=== PATIENT | male | born 1995 | race Caucasian/White ===

== ENCOUNTER 2024-05-23 11:02 | Emergency (ER) | payer OTHER, SELFPAY ==
--- NOTE | 2024-05-23 11:04 | XR_ITS ---
WS: [id number] Portable AP upright chest, 05/23/2024 Clinical Data: cp Comparison: None. Findings: No nodules, masses or effusions are seen. The heart is normal. The pulmonary vascularity is not increased. No pneumonia or pneumothorax is seen. XR/XR chest 1V portable [id number] Impression: Negative chest.
[2024-05-23 11:10] VITALS: BP 122/85; PULSE 82; RESP 18; TEMP 36.7; O2SAT 93; BMI 31.5
--- NOTE | 2024-05-23 11:16 | ECG_ITS ---
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 Measurements Intervals [place] Rate: 79 P: 14 AK: 130 QRS: -22 QRSD: 103 T: 46 QT: 339 QTc: 390 Interpretive Statements SINUS RHYTHM WITH SINUS ARRHYTHMIA BORDERLINE LEFT AXIS DEVIATION [QRS AXIS < -20] INTERPRETATION BASED ON A DEFAULT AGE OF 40 YEARS No previous ECG available for comparison Electronically Signed On 05-23-2024 17:21:53 FIELD CROP FARMWORKER by Patricio Jean M.D. [id number]
--- NOTE | 2024-05-23 11:24 | ECG_ITS ---
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 Measurements Intervals [place] Rate: 79 P: 14 [place]: 130 QRS: -22 QRSD: 103 T: 46 QT: 339 QTc: 390 Interpretive Statements SINUS RHYTHM WITH SINUS ARRHYTHMIA BORDERLINE LEFT AXIS DEVIATION [QRS AXIS < -20] INTERPRETATION BASED ON A DEFAULT AGE OF 40 YEARS No previous ECG available for comparison Electronically Signed On 05-23-2024 17:22:24 ARMHOLE FELLER HANDSTITCHING MACHINE by Patricio Jean M.D. [id number]
--- NOTE | 2024-05-23 11:26 | ED_ITS ---
HPI - Chest Pain 2 General: Chief Complaint: Chest Pain Stated Complaint: chest pain Time Seen by Provider: 05/23/24 11:19 History of Present Illness: 29-year-old male presents with some flul bereket symptoms for the last couple days days with some cough, pain in his lower sternum epigastric region with deep breath. Some nausea, no vomiting or diarrhea. Patient reports over the last 2 days the pain and pressure got a little bit more increase in his chest and just wanted to be evaluated. He has severe GERD and took a Zantac this morning and just wanted to have it checked out today. Associated symptoms: Reports abdominal pain (Epigastric), dyspnea and nausea; Deny fever(s), palpitations or vomiting Related Data Home Medications Medication Instructions Recorded Confirmed calcium carbonate (Tums) 300 mg PO TID 05/23/24 05/23/24 famotidine 20 mg tablet 20 mg PO DAILY 05/23/24 05/23/24 phenylephrine 5 2 cap PO Q6H PRN Sinus Symptoms 05/23/24 05/23/24 mg-dextromethorphan 10 mg-acetaminophen 325 mg capsule Allergies Allergy/AdvReac Type Severity Reaction Status Date / Time ibuprofen Allergy Unknown Verified 05/23/24 11:17 Review of Systems 2 Const: Reports: fatigue and malaise; Denies: fever(s) or chills Card: Reports: chest pain; Denies: palpitations, dyspnea on exertion or orthopnea Resp: Reports: dyspnea, non-productive cough and pain on inspiration GI: Reports: abdominal pain (Epigastric) and nausea; Denies: vomiting : Denies: flank pain or difficulty urinating Skin/Breast: Denies: rash Neuro: Reports: headache(s) Psych: Denies: anxiety or depression Physical Exam 2 Const: COMMON NORMALS: no acute distress, average body habitus, patient oriented x3, no limitations, healthy appearing and alert Chest: CHEST: Yes tenderness (Epigastric) xiphoid process Resp: COMMON NORMALS: normal respiratory effort, No retractions, No use of accessory muscles and clear to auscultation bilaterally AUSCULTATION: clear to auscultation bilaterally Cardio: COMMON NORMALS: regular rate and regular rhythm RATE: regular rate RHYTHM: regular rhythm GI: COMMON NORMALS: Soft to palpation PALPATION: Yes Soft to palpation and Yes Tenderness to palpation present (GI) (Mild epigastric) Extremity: COMMON NORMALS: normal to inspection, full ROM and capillary refill normal Neuro: COMMON NORMALS: patient oriented x3, moves all extremities and no focal motor deficits SENSORIUM/ORIENTATION: Yes alert Psych: COMMON NORMALS: Normal thought process present, cooperative, normal affect and speech normal SPEECH: Yes normal speech THOUGHT PROCESS: Normal thought process present Skin: COMMON NORMALS: no rashes or lesions noted and turgor normal GENERAL SKIN EXAM: no rashes or lesions noted and turgor normal Course 2 Vital Signs: Vital signs: Vital Signs Temperature 98.0 F 05/23/24 11:10 Pulse Rate 73 05/23/24 15:37 Respiratory Rate 18 05/23/24 15:37 Blood Pressure 127/91 05/23/24 15:37 Pulse Oximetry 96 05/23/24 15:37 Oxygen Delivery Me thod Room Air 05/23/24 13:40 MDM - Chest Pain Medical Decision Making Patient diagnostic studies were ordered reviewed and interpreted by me. Patient has no significant findings on his labs. Patient with a negative troponin with symptoms similar gone for couple days with some negative EKGs. Patient's symptoms are consistent with a viral pleurisy along with maybe some reflux. Patient is feeling better. Discussed with him findings. Recommended he start taking his medications daily for reflux along with some ibuprofen or Tylenol for the pleuritic chest pain. Patient was positive for entero-/rhinovirus. He is stable and discharged home Lab Data 05/23/24 11:44 05/23/24 11:44 Radiology Impressions Chest X-Ray 05/23/24 11:04 Impression: Negative chest. Laboratory Results WBC 7.72 10^3/uL (3.29-11.43) 05/23/24 11:44 RBC 5.21 10^6/uL (3.85-5.65) 05/23/24 11:44 Hgb 16.10 g/dL (11.27-16.99) 05/23/24 11:44 Hct 47.5 % (37-53) 05/23/24 11:44 MCV 91.2 fl (82-101) 05/23/24 11:44 MCH 30.9 pg (27-33) 05/23/24 11:44 MCHC 33.9 g/dL (30-55) 05/23/24 11:44 RDW 12.5 % (12.1-15.1) 05/23/24 11:44 Plt Count 200 10^3/cmm (157-399) 05/23/24 11:44 MPV 9.8 fL (7.4-10.4) 05/23/24 11:44 Neut % (Auto) 59.2 % 05/23/24 11:44 Lymph % (Auto) 31.0 % 05/23/24 11:44 [place] % (Auto) 7.4 % 05/23/24 11:44 Eos % (Auto) 1.6 % 05/23/24 11:44 Baso % (Auto) 0.4 % 05/23/24 11:44 Neut # (Auto) 4.58 10^3/uL (1.8-7.7) 05/23/24 11:44 Lymph # (Auto) 2.4 10^3/uL (0.8-4.8) 05/23/24 11:44 [place] # (Auto) 0.6 10^3/uL (0.2-0.9) 05/23/24 11:44 Eos # (Auto) 0.1 10^3/uL (0.0-0.8) 05/23/24 11:44 Baso # (Auto) 0.0 10^3/uL (0.0-0.1) 05/23/24 11:44 Nucleated RBC % (auto) 0 % 05/23/24 11:44 Nucleated RBCs # 0.0 /100WBC 05/23/24 11:44 Sodium 141 mmol/L (136-145) 05/23/24 11:44 Potassium 4.5 mmol/L (3.5-5.1) 05/23/24 11:44 Chloride 102 mmol/L (98-107) 05/23/24 11:44 Carbon Dioxide 26 mmol/L (22-29) 05/23/24 11:44 Anion Gap 17.5 (5-19) 05/23/24 11:44 BUN 11 mg/dL (6-20) 05/23/24 11:44 Creatinine 0.8 mg/dL (0.7-1.2) 05/23/24 11:44 GFR Calculation 115.1 mL/min (90-130) 05/23/24 11:44 Glucose 103 mg/dL (65-115) 05/23/24 11:44 Calculated Osmolality 292 mOsm/kg (285-295) 05/23/24 11:44 Calcium 9.5 mg/dL (8.5-10.5) 05/23/24 11:44 Total Bilirubin 0.3 mg/dL (0.15-1.2) 05/23/24 11:44 AST 16 U/L (0-40) 05/23/24 11:44 ALT 22 U/L (0-41) 05/23/24 11:44 Alkaline Phosphatase 79 U/L (40-130) 05/23/24 11:44 Troponin T Baseline < 6 ng/L (0-15) 05/23/24 11:44 Total Protein 6.9 g/dL (6.6-8.7) 05/23/24 11:44 Albumin 4.8 g/dL (3.5-5.2) 05/23/24 11:44 Globulin 2.1 g/dL (1.3-4.6) 05/23/24 11:44 Lipase 33 U/L (13-60) 05/23/24 11:44 Adenovirus (PCR) Not detected (NOT DETECT) 05/23/24 11:39 C. pneumoniae DNA (PCR) Not detected (NOT DETECT) 05/23/24 11:39 Coronavirus 229E (PCR) Not detected (NOT DETECT) 05/23/24 11:39 Human Metapneumovir PCR Not detected (NOT DETECT) 05/23/24 11:39 Influenza A (H1) PCR Not detected (NOT DETECT) 05/23/24 11:39 Influ A (H1/09) PCR Not detected (NOT DETECT) 05/23/24 11:39 Influenza A (H3) PCR Not detected (NOT DETECT) 05/23/24 11:39 Influenza Type A (PCR) Not detected (NOT DETECT) 05/23/24 11:39 Influenza Type B (PCR) Not detected (NOT DETECT) 05/23/24 11:39 M. pneumoniae (PCR) Not detected (NOT DETECT) 05/23/24 11:39 Parainfluenza 1 (PCR) Not detected (NOT DETECT) 05/23/24 11:39 Parainfluenza 2 (PCR) Not detected (NOT DETECT) 05/23/24 11:39 Parainfluenza 3 (PCR) Not detected (NOT DETECT) 05/23/24 11:39 Parainfluenza 4 (PCR) Not detected (NOT DETECT) 05/23/24 11:39 RSV Type A (PCR) Not detected (NOT DETECT) 05/23/24 11:39 RSV Type B (PCR) Not detected (NOT DETECT) 05/23/24 11:39 Entero/Rhino (PCR) Detected (NOT DETECT) A 05/23/24 11:39 SARS-CoV-2 (PCR) Not detected (NOT DETECT) 05/23/24 11:39 All radiology interpretation(s) finalized by discharge Discharge Plan Discharge Patient Disposition: Home Clinical Impression: Viral syndrome, Chest pain, pleuritic, GERD (gastroesophageal reflux disease) Condition: Stable Prescriptions: No Action Tums 300 mg (750 mg) Tablet,Chewable 300 mg PO TID famotidine 20 mg Tablet 20 mg PO DAILY DayTime 5-10-325 mg Capsule 2 cap PO Q6H PRN (Reason: Sinus Symptoms) Discharge Orders: Discharge ED (Routine); Ordered 05/23/24 Ordered By: Girish Liao Referrals: Walter Tavares MD [Family Provider] - Discharge Diet: Advance as tolerated Discharge Activity: Resume usual activity Patient Instructions: Pleurisy (ED), GERD (Gastroesophageal Reflux Disease) (DC), Esophageal Spasm (ED), Opioid Safety, Pain Management, Viral Syndrome - Adult Activity Restrictions/Additional Instructions: He is followed with your primary care provider in 7 to 10 days if symptoms or not improving. You may use Tylenol ibuprofen for discomfort. Return to the ER with any concerns Coding Level of Care Code ED Regulator Tester for Carla Gordon
[2024-05-23 11:51] LABS: Basophils % 0.4 %; Eosinophils # 0.1 10^3/uL (0.0-0.8); Eosinophils % 1.6 %; Hematocrit 47.5 % (37-53); Lymphocytes # 2.4 10^3/uL (0.8-4.8); Mean Corpuscular HGB Conc 33.9 g/dL (30-55); Mean Corpuscular Hemoglobin 30.9 pg (27-33); Mean Corpuscular Volume 91.2 fl (82-101); Mean Platelet Volume 9.8 fL (7.4-10.4); Monocytes # 0.6 10^3/uL (0.2-0.9); Monocytes % 7.4 %; Neutrophils # 4.58 10^3/uL (1.8-7.7); Neutrophils % 59.2 %; Nucleated Red Blood Cells % 0 %; Platelet Count 200 10^3/cmm (157-399); Red Blood Count 5.21 10^6/uL (3.85-5.65); Red Cell Distribution Width 12.5 % (12.1-15.1); White Blood Count 7.72 10^3/uL (3.29-11.43)
[2024-05-23 12:14] LABS: Troponin(5th) Baseline < 6 ng/L (0-15)
[2024-05-23 12:16] VITALS: BP 123/92; PULSE 80; RESP 16; O2SAT 99
[2024-05-23 12:21] LABS: Alanine Aminotransferase 22 U/L (0-41); Albumin Level 4.8 g/dL (3.5-5.2); Alkaline Phosphatase 79 U/L (40-130); Anion Gap 17.5 (5-19); Aspartate Amino Transferase 16 U/L (0-40); Blood Urea Nitrogen 11 mg/dL (6-20); Calcium 9.5 mg/dL (8.5-10.5); Carbon Dioxide 26 mmol/L (22-29); Chloride 102 mmol/L (98-107); Creatinine Clr Calc Pharmacy 162.7811; Globulin 2.1 g/dL (1.3-4.6); Glomerular Filtration Rate 115.1 mL/min (90-130); Glucose 103 mg/dL (65-115); Lipase 33 U/L (13-60); Osmolality Calculated 292 mOsm/kg (285-295); Potassium 4.5 mmol/L (3.5-5.1); Sodium 141 mmol/L (136-145); Total Bilirubin 0.3 mg/dL (0.15-1.2); Total Protein 6.9 g/dL (6.6-8.7)
--- NOTE | 2024-05-23 13:24 | ECG_ITS ---
[facility]: [facility]24[facility]23 Pat Name: Rudi Chavez Department: Room: Gender: Male Counseling Aide: : 1995 Requested By: Girish Liao Order Number: [id number] Parag MD: Patricio Jean M.D. Measurements Intervals [place] Rate: 68 P: 36 DE: 172 QRS: -2 QRSD: 103 T: 30 QT: 363 QTc: 386 Interpretive Statements SINUS RHYTHM WITH SINUS ARRHYTHMIA Compared to ECG 05/23/2024 11:05:56 No significant changes Electronically Signed On 05-23-2024 17:37:29 FISHING LINE WINDING MACHINE OPERATOR by Patricio Jean M.D. [email or web address]
[2024-05-23 13:40] VITALS: BP 134/98; PULSE 70; RESP 16; O2SAT 98
[2024-05-23 15:37] VITALS: BP 127/91; PULSE 73; RESP 18; O2SAT 96
[2024-05-23 15:51] LABS: Adenovirus Not Detected (NOT DETECT); Chlamydia Pneumoniae Not Detected (NOT DETECT); Coronavirus 229E,HKU1,NL63,OC4 Not Detected (NOT DETECT); Human Metapneumovirus Not Detected (NOT DETECT); Human Rhinovirus/Enterovirus Detected (NOT DETECT); Influenza A Not Detected (NOT DETECT); Influenza A H1 Not Detected (NOT DETECT); Influenza A H1-2009 Not Detected (NOT DETECT); Influenza A H3 Not Detected (NOT DETECT); Influenza B Not Detected (NOT DETECT); Mycoplasma Pneumoniae Not Detected (NOT DETECT); Parainfluenza Virus Type 1 Not Detected (NOT DETECT); Parainfluenza Virus Type 2 Not Detected (NOT DETECT); Parainfluenza Virus Type 3 Not Detected (NOT DETECT); Parainfluenza Virus Type 4 Not Detected (NOT DETECT); Respiratory Syncytial Virus A Not Detected (NOT DETECT); Respiratory Syncytial Virus B Not Detected (NOT DETECT); SARS-COV-2 Not Detected (NOT DETECT)
== END 2024-05-23 15:37 | disposition home or self-care (01) ==
PROVIDERS: Emergency Provider Student in an Organized Health Care Education/Training Program; Family Provider Internal Medicine
DX: B34.9 Viral infection, unspecified (principal); R07.81 Pleurodynia; K21.9 Gastro-esophageal reflux disease without esophagitis; Z11.52 Encounter for screening for COVID-19
CPT/HCPCS: 36415; 71045; 80053; 83690; 84484; 85025; 87486; 87581; 87633; 93005; 99285

== ENCOUNTER 2024-07-02 15:17 | Emergency (ER) | payer OTHER, SELFPAY ==
[2024-07-02 15:42] VITALS: BP 138/87; PULSE 65; TEMP 36.7; O2SAT 97; BMI 30.5
--- NOTE | 2024-07-02 17:11 | XRR_ITS ---
PROCEDURE INFORMATION: Exam: XR Right Knee Exam date and time: 07/02/2024 5:13 PM Age: 29 years old Clinical indication: Injury or trauma; Other: Twisted RT knee; Additional info: Injury/pain TECHNIQUE: Imaging protocol: Radiologic exam of the right knee. Views: 3 views. COMPARISON: No relevant prior studies available. FINDINGS: Bones/joints: .No acute fracture. No dislocation. Normal bone mineralization. No joint effusion. Joint spaces are maintained. Soft tissues: No soft tissue swelling or soft tissue emphysema. No radiopaque foreign body. XR/XR knee RT 3V* [id number] IMPRESSION: Negative radiographs of the right knee. Followup imaging recommended in 7-14 days if clinical concern for fracture persists.
--- NOTE | 2024-07-02 18:11 | ED_ITS ---
HPI - Extremity Problem General: Chief complaint: Extremity Injury, Lower Stated complaint: R knee injury Time Seen by Provider: 07/02/24 17:11 Source: patient Mode of arrival: ambulatory Limitations: no limitations History of Present Illness: Patient is a 29-year-old male who presents the emergency department complaining of right knee pain for 10 days. States that he injured it after playing basket ball, there was a twisting aspect of the injury and he notes that it has not been getting better despite Tylenol and other conservative therapy. No previous injuries to the right knee or surgeries. It is reported to be primarily to the lateral aspect, at the proximal fibula. Denies any radiation of the pain. States that it is worsened by walking, however even at rest he can feel that it throbs. He states that he cannot take ibuprofen because he is allergic. While he states it was initially swollen after the incident, this has since gotten better. He also is not reporting any warmth to the joint or any fevers or other systemic signs of illness. MD Complaint: joint pain Onset (ago): day(s) (10) Pain Consistency: constant Location: right and knee Quality: other (throbbing) Radiation: none Relieving factors: nothing Exacerbating factors: range of motion and rest Associated symptoms: Reports no associated symptoms; Deny chest pain, fever(s) or rash Context: other (twisting injury) Related Data Home Medications ?Medication ?Instructions ?Recorded ?Confirmed calcium carbonate (Tums) 300 mg PO TID 05/23/2405/23 famotidine 20 mg tablet 20 mg PO DAILY 05/23/2401/07 phenylephrine 5 2 cap PO Q6H PRN Sinus Sympt oms 05/23/24 05/23/24 mg-dextromethorphan 10 mg-acetaminophen 325 mg capsule Previous Rx's ?Medication ?Instructions ?Recorded prednisone 20 mg tablet 60 mg (3 x 20 mg) PO ONCE 5 days 07/02/24 #15 tabs Allergies Allergy/AdvReac Type Severity Reaction Status Date / Time ibuprofen Allergy Unknown Verified 07/02/24 15:47 Review of Systems General: Reports: 10 or more systems reviewed and unremarkable except in HPI and below Const: Denies: fever(s) or chills Card: Denies: chest pain Resp: Denies: dyspnea or productive cough GI: Denies: abdominal pain, nausea, vomiting or diarrhea : Denies: flank pain Musc: Reports: joint pain (Right knee) and joint swelling (Right knee); Denies: neck pain, back pain, extremity pain, extremity swelling, joint redness, joint warmth, limited range of motion or muscle weakness Skin/Breast: Denies: rash Neuro: Denies: headache(s), numbness in extremities or weakness in extremities Physical Exam Const: COMMON NORMALS: no acute distress, patient oriented x3, no limitations, healthy appearing, alert and well nourished HENMT: COMMON NORMALS: normocephalic and atraumatic HEAD & SCALP: normocephalic and atraumatic Neck/C-Spine: COMMON NORMALS: full ROM, supple and no meningeal signs Extremity: COMMON NORMALS: normal to inspection, full ROM, capillary refill normal, no joint enlargement and no clubbing, cyanosis or edema NARRATIVE EXTREMITY EXAM: Mild reproducible tenderness to palpation to proximal head of fibula, no overlying abnormalities. There is no diffuse swelling to the right knee joint, no appreciable joint effusion. Joint is not warm to the touch, there is no erythema. Full range of motion, no laxity with varus/valgus stress testing. Negative Himanshu and posterior drawer. Negative Karis's and negative Ambrose compression test. Distal neurovascular exam unremarkable. Neuro: COMMON NORMALS: patient oriented x3, moves all extremities, no focal motor deficits and no sensory deficits noted SENSORIUM/ORIENTATION: Yes alert MENINGEAL SIGNS: Yes no meningeal signs Skin: COMMON NORMALS: no rashes or lesions noted GENERAL SKIN EXAM: no rashes or lesions noted Course Vital Signs: Vital signs: Vital Signs Temperature 98.1 F 07/02/24 15:42 Pulse Rate 65 07/02/24 15:42 Blood Pressure 138/87 07/02/24 15:42 Pulse Oximetry 97 07/02/24 15:42 Oxygen Delivery Me thod Room Air 07/02/24 15:42 MDM - Extremity (Nontraumatic) Medical Decision Making Patient has had right knee pain for the past 10 days after twisting injury playing basketball. Was initially reported to be swelling but this has since gotten better. On physical exam there were no special knee tests that were positive or that raise concern, certainly do not appear to be a septic joint. X-ray also did not demonstrate any acute major abnormalities. Despite negative special testing, where he is tender this could be pain at distal IT band insertion, he had stated that he cannot take ibuprofen secondary to being allergic. Reported symptoms lasting 10 days we will go ahead and try prednisone ultimately will have him follow-up with orthopedist as if he continues to have significant pain he may warrant an MRI. Overall no emergent concerns here today, return precautions given. Lab Data Radiology Impressions Knee X-Ray 07/02/24 17:11 IMPRESSION: Negative radiographs of the right knee. Followup imaging recommended in 7-14 days if clinical concern for fracture persists. All radiology interpretation(s) finalized by discharge Discharge Plan Discharge Patient Disposition: Home Clinical Impression: Knee pain, right Condition: Stable Prescriptions: New prednisone 20 mg tablet 60 mg PO ONCE 5 Days Qty: 15 0RF No Action Tums 300 mg (750 mg) Tablet,Chewable 300 mg PO TID famotidine 20 mg Tablet 20 mg PO DAILY DayTime 5-10-325 mg Capsule 2 cap PO Q6H PRN (Reason: Sinus Symptoms) Discharge Orders: Discharge ED (Routine); Ordered 07/02/24 Ordered By: Rod Baer Referrals: Walter Tavares MD [Family Provider] - Patient Instructions: Knee Pain (ED) Activity Restrictions/Additional Instructions: Follow-up with orthopedics. Prednisone as prescribed. May continue to take Tylenol for pain. Elevate the extremity and compression device. Range of motion as tolerated. Return with any significant swelling of the joint, redness or heat to the joint, fevers, or any concerns that you have. Print Language: Faroese Coding Level of Care Code ED Middle School English Teacher for Carla Gordon
[2024-07-02 18:18] VITALS: BP 118/86; PULSE 80; RESP 18; O2SAT 97
--- NOTE | 2024-07-05 07:31 | DCPLANNER ---
messaged ortho for er f/u
== END 2024-07-02 18:19 | disposition home or self-care (01) ==
PROVIDERS: Emergency Provider Physician Assistant; Family Provider Internal Medicine
DX: M25.561 Pain in right knee (principal)
CPT/HCPCS: 73562; 99283

== ENCOUNTER → 2024-07-11 10:13 | Outpatient (BNVA) | payer OTHER, SELFPAY | PROVIDERS: Family Provider Internal Medicine; Visit Provider Specialist | DX: S89.91XA Unspecified injury of right lower leg, initial encounter (principal); M25.561 Pain in right knee; X58.XXXA Exposure to other specified factors, initial encounter | CPT/HCPCS: 73560; 73565 ==

== ENCOUNTER 2024-07-18 15:13 | Outpatient (CLI) | payer OTHER, SELFPAY ==
--- NOTE | 2024-07-18 15:15 | MR_ITS ---
WS: [id number] MRI RIGHT KNEE NONCONTRAST TECHNIQUE: Axial PD, coronal PD fat sat, coronal PD, sagittal PD, and sagittal PD fat-sat images obtained. CLINICAL INFORMATION: right knee pain COMPARISON: None. FINDINGS: Distal quadriceps and patella tendons are intact. Normal ACL and PCL. Medial and lateral meniscus appear intact. No acute appearing meniscal tears. Edema within the posterior lateral tibial plateau with small acute nondisplaced osteochondral fracture. No significant depression. Tiny amount of edema extending to the tibial spines and medial tibial plateau. No other visualized fractures. Normal patella. Normal patellar cartilage. Normal medial and lateral patellar retinaculum. Normal medial and lateral collateral ligaments. Normal femoral condyles. Normal popliteal fossa. Head of the fibula is normal. MR/MR knee RT wo con* [id number] IMPRESSION: 1. ACL and PCL appear intact. 2. No acute appearing meniscal tears. 3. Acute osteochondral fracture involving the lateral posterior tibial plateau with diffuse associated edema. No displaced fragments. 4. Medial and lateral collateral ligaments appear intact. 5. No other acute findings. Outbridge grading: grade I: focal areas of hyperintensity with normal contour
== END 2024-07-18 15:14 | disposition home or self-care (01) ==
LOC: RAD 15:14
PROVIDERS: Family Provider Internal Medicine; Visit Provider Specialist
DX: S82.144A Nondisplaced bicondylar fracture of right tibia, initial encounter for closed fracture (principal); X58.XXXA Exposure to other specified factors, initial encounter
CPT/HCPCS: 73721; 99204

== ENCOUNTER → 2024-07-30 14:57 | Outpatient (BNVA) | payer OTHER, SELFPAY | PROVIDERS: Family Provider Internal Medicine; Visit Provider Specialist | DX: S82.142A Displaced bicondylar fracture of left tibia, initial encounter for closed fracture (principal); X58.XXXA Exposure to other specified factors, initial encounter | CPT/HCPCS: 99214 ==

== ENCOUNTER 2025-03-17 21:43 | Emergency (ER) | payer OTHER, SELFPAY ==
--- OUTSIDE RECORDS SUMMARY | 2024-07-20 04:56 | XMS_ITS | Encounter Summary ---
Author Name [facility] [place] [facility] [place] Address [address] [place] [address] Care Team Providers Care Upholsterer Assembly Line Name Role Phone NURYS CASTRO Primary Care Provider Anand e Insurance Providers: All historical and current Section Date Range: From patient's date of to the date document was created. This section includes the names of all active insurance providers for the patient. Insurance Provider Type of Coverage Plan Name Start of Policy Coverage End of Policy Coverage Group Number Member ID Insurance Provider's Telephone Number Policy Senior's Name Patient's Relationship to Policy Senior Selected Encounter This section includes the information on record at [place] for the Encounter. Date/Time Encounter Type Encounter Description Reason Provider Source Jul 20, 2024 10:56 AM Outpatient Encounter ADMIN PAT ACTIVTIES (MASNONCT) MARIE COX Inge Encounter Template Text not used by [place] Plan of Treatment: Future Appointments (+ 6 months) and Future Tests (+/- 45 days) The Plan of Treatment section includes future care activities for the patient from all [place] treatmentfacilities. This section includes future appointments and future orders which are active, pending or scheduled. Future Appointments This section includes appointments that were scheduled to occur 6 months from the date of the Encounter, up to a maximum of 20 appointments. The data comes from all [place] treatment facilities. Appointment Date/Time Appointment Type Appointme nt Facility Name Aug 07, 2024 01:00 PM AMBULATORY - MEDICINE [facility] Active, Pending, and Scheduled Orders This section includes a listing of several types of active, pending, and scheduled orders, including clinic medications orders, diagnostic test orders, procedure orders and consult orders; where the start date of the order is 45 days before the date of the Encounter or 45 days after the date of theEncounter. The data comes from all [place] treatment facilities. Test Date/Time Test Type Test Details Facility Name Jul 16, 2024 12:00 AM Laboratory - Chemistry Order CBC BLOOD SP [facility] Jul 16, 2024 12:00 AM Laboratory - Chemistry Order COMPREHENSIVE METABOLIC PANEL GREEN LI/HEP BLD/[facility] Jul 16, 2024 12:00 AM Laboratory - Chemistry Order HGA1C BLOOD SP [facility] Jul 16, 2024 12:00 AM Laboratory - Chemistry Order CHOLESTEROL PANEL (PB) GREEN LI/HEP BLD/[facility] Jul 16, 2024 12:00 AM Laboratory - Chemistry Order TSH (MA-PB) GOLD/RED SST SERUM SP [facility] Aug 05, 2024 12:00 AM Laboratory - Chemistry Order BASIC METABOLIC PROFILE LT GREEN PLASMA SP [facility] Aug 05, 2024 12:00 AM Laboratory - Chemistry Order LIPID PANEL LT GREEN PLASMA SP ONCE [facility] Aug 05, 2024 12:00 AM Laboratory - Chemistry Order HEMOGLOBIN & HEMATOCRIT PANEL LAVENDER BLOOD [facility] Encounter Notes: All associated encounter notes This section contains the clinical notes associated to the Encounter. Date/Time Encounter Note(s) Provider Source Jul 20, 2024 10:56 AM PRIMARY CARE NOTE: LOCAL TITLE: C TRAVELING PCMM NOTE PB STANDARD TITLE: PRIMARY CARE NOTE DATE OF NOTE: JUL 20, 2024@10:56 ENTRY DATE: JUL 20, 2024@10:56:54 AUTHOR: MARIE COX EXP COSIGNER: URGENCY: STATUS: COMPLETED Pt. has a new pt. appt. to establish care with [facility] on 08-07-24. PCMM complete. /jolene/ MARIE COX [facility] RNCC Signed: 07/20/2024 10:57 MARIE COX [facility]
--- OUTSIDE RECORDS SUMMARY | 2025-03-17 21:50 | XMS_ITS | Continuity of Care Document ---
Author Name [facility] Organization [facility] Care Team Providers Care Wire Coiler Name Role Phone [facility] Unavailable Unavailable Problems Combined list of problems from Department of Defense and [facility] facilities. It does not include entries that were removed or entered in error. Problem Status Onset Date Problem Type Date of Resolution Comments Source Gastro-esophageal reflux disease without esophagitis Active 07/07/2015 Condition [facility] Low back pain Active Condition [facility] Pain in left shoulder Active Condition [facility] Diagnosis: ICD-10-CM Z74.1 Need for assistance with personal care Active Diagnosis [facility] Diagnosis: ICD-10-CM E78.5 Hyperlipidemia, unspecified Active Diagnosis [facility] Medications Combined list of outpatient medications from Department of Defense and [facility] facilities.Medications provided include 1) outpatient medications from the last 15 months, and 2) patient-reported medications. Medication Details Route Status Indication(s) Patie nt Instructions Prescription Expires Prescription Number Last Dispense Date Ordering Provider Order Date Order Qty Source omeprazole Oral, Daily, 0 total refill(s ), Maintena nce Oral (given by mouth) Ordered 2021 [id number] h [facility] Allergies, Adverse Reactions, Alerts Combined list of allergies from Department of Defense and [facility] facilities. It does not include entries that were removed or entered in error. Substance Category Reaction Severity Reaction type Status Date Reported Comments Source ibuprofen Propensity to adverse reactions to substance Nausea and Vomiting Active 6 Unknown Organization [facility] Drug allergy (disorder) Nausea and Vomiting active 4 [facility] Propensity to adverse reactions to drug (finding) Nausea and vomiting active 4 [facility] Immunizations Combined list of available immunizations from the Department of [facility] and [facility] facilities. Immunization Series Date Given Administered By Site Reaction Lot Number CVX Code Drug Commodities Requirements Analyst Status Comments Source COVID-19 (PFIZER), MRNA, LNP-S, PF, 30 MCG/0.3 ML DOSE 2020 208 complet ed HISTORICA L INFORMATI ON - FROM PATIENT'S WRITTEN RECORD, SANDYV [facility] SARS-COV-2 (COVID-19) vaccine, mRNA, spike protein, LNP, preservative free, 30 mcg/0.3mL dose 2 2020 [id number] Pfizer, Inc (PFR) complet ed SARS-COV- 2 (COVID-19 ) vaccine, mRNA, spike protein, LNP, preservat napoleon free, 30 mcg/0.3mL dose DoD influenza, injectable, quadrivalent, contains preservative 7 2020 [id number] [facility] ([facility]) complet ed influenza , injectabl e, quadrival ent, contains preservat napoleon DoD COVID-19 (PFIZER), MRNA, LNP-S, PF, 30 MCG/0.3 ML DOSE 2020 208 complet ed HISTORICA L INFORMATI ON - FROM PATIENT'S WRITTEN RECORD, JLV [facility] SARS-COV-2 (COVID-19) vaccine, mRNA, spike protein, LNP, preservative free, 30 mcg/0.3mL dose 1 2020 [id number] 208 Pfizer, Inc (PFR) complet ed SARS-COV- 2 (COVID-19 ) vaccine, mRNA, spike protein, LNP, preservat napoleon free, 30 mcg/0.3mL dose DoD SARS-COV-2 (COVID-19) vaccine, mRNA, spike protein, LNP, preservative free, 100 mcg or 50 mcg dose 0 2020 207 () Not Given SARS-COV- 2 (COVID-19 ) vaccine, mRNA, spike protein, LNP, preservat napoleon free, 100 mcg or 50 mcg dose DoD Influenza, injectable, quadrivalent, preservative free 0 2019 [id number] 150 Seqirus (SEQ) complet ed Influenza , injectabl e, quadrival ent, preservat napoleon free DoD anthrax vaccine 3 2019 [id number] 24 [employer] [place] (MIP) complet ed anthrax vaccine DoD American Encephalitis IM 2019 [id number] 134 Valneva complet ed American Encephali tis IM 09/19/19 Given Ambulat ory Pharmac y American Encephalitis vaccine for intramuscular administratio n 2 2019 [id number] 134 Valneva (JACQUELYN) complet ed American Encephali tis vaccine for intramusc ular administr ation DoD vaccinia (smallpox) vaccine 2019 [id number] C 75 sanofi pasteur complet ed vaccinia (smallpox ) vaccine 05/30/19 Given Ambulat ory Pharmac y measles/mumps /rubella virus vaccine 2019 [id number] Merck & Company Inc complet ed measles/m umps/rube lla virus vaccine 05/30/19 Given Ambulat ory Pharmac y measles, mumps and rubella virus vaccine 2 2019 [id number] Merck (MSD) complet ed measles, mumps and rubella virus vaccine DoD vaccinia (smallpox) vaccine 0 2019 [id number] 019 C 75 Sanofi Pasteur (PMC) complet ed vaccinia (smallpox ) vaccine DoD American Encephalitis IM 2019 [id number] 5E 134 Valneva complet ed American Encephali tis IM 05/29/19 Given Ambulat ory Pharmac y anthrax vaccine 2019 [id number] Emergent Biosolutions complet ed anthrax vaccine 05/29/19 Given Ambulat ory Pharmac y anthrax vaccine 2 2019 [id number] 24 [employer] Ruchi (MIP) complet ed anthrax vaccine DoD American Encephalitis vaccine for intramuscular administratio n 1 2019 [id number] 5E 134 Valneva (JACQUELYN) complet ed American Encephali tis vaccine for intramusc ular administr ation DoD influenza, injectable, quadrivalent- pf 2018 [id number] 150 Seqirus complet ed influenza , injectabl e, quadrival ent-pf 04/09/19 Given Ambulat ory Pharmac y anthrax vaccine 2018 [id number] 24 [employer] complet ed anthrax vaccine 04/09/19 Given Ambulat ory Pharmac y typhoid Vi capsular polysaccharid e vac 2018 [id number] 101 sanofi pasteur complet ed typhoid Vi capsular polysacch aride vac 04/09/19 Given Ambulat ory Pharmac y anthrax vaccine 1 2018 [id number] 24 [employer] Ruchi (MIP) complet ed anthrax vaccine DoD typhoid Vi capsular polysaccharid e vaccine 1 2018 [id number] 101 Sanofi Pasteur ([facility]) complet ed typhoid Vi capsular polysacch aride vaccine DoD Influenza, injectable, quadrivalent, preservative free 5 2018 [id number] 150 Seqirus (SEQ) complet ed Influenza , injectabl e, quadrival ent, preservat napoleon free DoD influenza, injectable, quadrivalent- pf 2017 [id number] 150 Seqirus complet ed influenza , injectabl e, quadrival ent-pf 02/15/18 Given Ambulat ory Pharmac y Influenza, injectable, quadrivalent, preservative free 0 2017 [id number] 150 Seqirus (SEQ) comple t ed Influenza , injectabl e, quadrival ent, preservat napoleon free DoD Influenza, injectable, Madin Ward Canine Kidney, quadrivalent with preservative 0 2016 [id number] 186 Seqirus (SEQ) comple t ed Influenza , injectabl e, Madin Ward Canine Kidney, quadrival ent with preservat napoleon DoD hepatitis A-hepatitis B vaccine 2016 [id number] 104 GlaxoSmithKli ne complet ed hepatitis A-hepatit is B vaccine 09/23/16 Given Ambulat ory Pharmac y hepatitis A and hepatitis B vaccine 3 2016 [id number] 104 SmithKline ([facility]) complet ed hepatitis A and hepatitis B vaccine DoD hepatitis A-hepatitis B vaccine 2015 [id number] 104 GlaxoSmithKli ne complet ed hepatitis A-hepatit is B vaccine 02/24/16 Given Ambulat ory Pharmac y hepatitis A and hepatitis B vaccine 2 2015 [id number] 104 SmithKline ([facility]) complet ed hepatitis A and hepatitis B vaccine DoD influenza, seasonal, injectable-pf 2015 [id number] 140 Seqirus complet ed influenza , seasonal, injectabl e-pf 02/16/16 Given Ambulat ory Pharmac y Influenza, seasonal, injectable, preservative free 2 2015 [id number] 140 Seqirus (SEQ) comple t ed Influenza , seasonal, injectabl e, preservat napoleon free DoD hepatitis A-hepatitis B vaccine 2015 [id number] 104 GlaxoSmithKli ne complet ed hepatitis A-hepatit is B vaccine 08/18/15 Given Ambulat ory Pharmac y measles/mumps /rubella virus vaccine 2015 [id number] 03 Merck & Company Inc complet ed measles/m umps/rube lla virus vaccine 08/18/15 Given Ambulat ory Pharmac y measles, mumps and rubella virus vaccine 2 2015 [id number] 03 Merck (MSD) complet ed measles, mumps and rubella virus vaccine DoD hepatitis A and hepatitis B vaccine 1 2015 [id number] 104 TimeBridge (SKB) complet ed hepatitis A and hepatitis B vaccine DoD tuberculin purified protein derivative 2015 [id number] 96 sanofi pasteur complet ed tuberculi n purified protein derivativ e 07/03/15 Given Ambulat ory Pharmac y influenza, injectable, quadrivalent 2015 [id number] 158 [facility] influenza , injectabl e, quadrival ent 07/03/15 Given Ambulat ory Pharmac y adenovirus vaccine, live 2015 [id number] 143 Teva Pharmaceutica ls complet ed adenoviru s vaccine, live 07/03/15 Given Ambulat ory Pharmac y tetanus, diphtheria, acellular pertu is 2015 [id number] 115 [facility] complet ed tetanus, diphtheri a, acellular pertussis 07/03/15 Given Ambulat ory Pharmac y meningococcal A,C,Y,W-135 (MCV4P) 2015 [id number] 114 sanofi pasteur complet ed meningoco ccal A,C,Y,W-1 35 (MCV4P) 07/03/15 Given Ambulat ory Pharmac y poliovirus vaccine, inactivated 2015 [id number] 10 sanofi pasteur complet ed polioviru s vaccine, inactivat ed 07/03/15 Given Ambulat ory Pharmac y TDAP 2015 115 complet ed HISTORICA L INFORMATI ON - FROM PATIENT'S WRITTEN RECORD, [facility] poliovirus vaccine, inactivated 1 2015 L1130 10 Sanofi Pasteur (PMC) complet ed polioviru s vaccine, inactivat ed DoD meningococcal polysaccharid e (groups A, C, Y and W-135) diphtheria toxoid conjugate vaccine (MCV4P) 1 2015 [id number] 114 Sanofi Pasteur (PMC) complet ed meningoco ccal polysacch aride (groups A, C, Y and W-135) diphtheri a toxoid conjugate vaccine (MCV4P) DoD tetanus toxoid, reduced diphtheria toxoid, and acellular pertu is vaccine, adsorbed 1 2015 [id number] 115 [facility] ([facility] complet ed tetanus toxoid, reduced diphtheri a toxoid, and acellular pertussis vaccine, adsorbed DoD Adenovirus, type 4 and type 7, live, oral 1 2015 [id number] 143 Mophie (BRR) complet ed Adenoviru s, type 4 and type 7, live, oral DoD influenza, injectable, quadrivalent, contains preservative 1 2015 [id number] 158 SmithKline (SKB) complet ed influenza , injectabl e, quadrival ent, contains preservat napoleon DoD measles virus vaccine 0 2015 05 () Not Given measles virus vaccine DoD varicella virus vaccine 0 2015 21 () Not Given varicella virus vaccine DoD Results Combined list of recent chemistry, hematology and other laboratory results from Department of Defense and Veterans Affairs, ranging from 15 months to all on record, depending upon the facility. Order Name Results Value Reference Range Date Interpretation Specimen Comments Source VITAMIN B12 COBALAMIN (VITAMIN B12) [MASS/VOLUM E] IN SERUM OR PLASMA 604 pg/mL 211 - 911 09/25 Specimen Type: SERUM No comment entered. Ordering Provider: NURYS CASTRO Report Released Date/Time: Aug 17, 2023 12:25 PM Reporting Lab: [place] [id number] [facility] [address] Performing Lab: [place] [id number] [facility] [address] [facility] CBC LEUKOCYTES [#/VOLUME] IN BLOOD BY AUTOMATED COUNT 8.5 10*3/uL 4.8 - 10.8 09/25 Specimen Type: BLOOD Comment: Values obtained from A1C measurement s can vary. For typical A1C assays, a reported value of 7.0 could actually be between 6.72 and 7.28 if measured by a reference method. A reported value of 9.0 could actually be between 8.73 and 9.27. Ref: [email or web address] Ordering Provider: NURYS CASTRO Report Released Date/Time: Aug 17, 2023 12:25 PM Reporting Lab: [address] [address] Performing Lab: [facility] [address] [facility] [address] [facility] CBC ERYTHROCYTE S [#/VOLUME] IN BLOOD BY AUTOMATED COUNT 5.00 10*6/uL 4.7 - 6.1 09/25 Specimen Type: BLOOD Comment: Values obtained from A1C measurement s can vary. For typical A1C assays, a reported value of 7.0 could actually be between 6.72 and 7.28 if measured by a reference method. A reported value of 9.0 could actually be between 8.73 and 9.27. Ref: [email or web address] Ordering Provider: NURYS CASTRO Report Released Date/Time: Aug 17, 2023 12:25 PM Reporting Lab: [address] [address] Performing Lab: [address] [address] [facility] CBC HEMOGLOBIN [MASS/VOLUM E] IN BLOOD 15.1 g/dL 14 - 18 09/25 Specimen Type: BLOOD Comment: Values obtained from A1C measurement s can vary. For typical A1C assays, a reported value of 7.0 could actually be between 6.72 and 7.28 if measured by a reference method. A reported value of 9.0 could actually be between 8.73 and 9.27. Ref: [email or web address] Ordering Provider: NURYS CASTRO Report Released Date/Time: Aug 17, 2023 12:25 PM Reporting Lab: [address] [address] Performing Lab: [facility] [address] [facility] [address] [facility] CBC HEMATOCRIT [VOLUME FRACTION] OF BLOOD BY AUTOMATED COUNT 44.5 42 - 52 09/25 Specimen Type: BLOOD Comment: Values obtained from A1C measurement s can vary. For typical A1C assays, a reported value of 7.0 could actually be between 6.72 and 7.28 if measured by a reference method. A reported value of 9.0 could actually be between 8.73 and 9.27. Ref: [email or web address] Ordering Provider: NURYS CASTRO Report Released Date/Time: Aug 17, 2023 12:25 PM Reporting Lab: [facility] [address] [place] [address] Performing Lab: [facility] [address] [facility] [address] [facility] CBC MCV [ENTITIC VOLUME] BY AUTOMATED COUNT 88.9 fL 80 - 94 09/25 Specimen Type: BLOOD Comment: Values obtained from A1C measurement s can vary. For typical A1C assays, a reported value of 7.0 could actually be between 6.72 and 7.28 if measured by a reference method. A reported value of 9.0 could actually be between 8.73 and 9.27. Ref: [email or web address] Ordering Provider: NURYS CASTRO Report Released Date/Time: Aug 17, 2023 12:25 PM Reporting Lab: [facility] [address] [facility] [address] Performing Lab: [address] [place] [address] [facility] CBC MCH [ENTITIC MASS] BY AUTOMATED COUNT 30.2 pg 27 - 31 09/25 Specimen Type: BLOOD Comment: Values obtained from A1C measurement s can vary. For typical A1C assays, a reported value of 7.0 could actually be between 6.72 and 7.28 if measured by a reference method. A reported value of 9.0 could actually be between 8.73 and 9.27. Ref: [email or web address] Ordering Provider: NURYS CASTRO Report Released Date/Time: Aug 17, 2023 12:25 PM Reporting Lab: [facility] [address] [facility] [address] Performing Lab: [facility] [address] [facility] [place] [address] [facility] CBC MCHC [MASS/VOLUM E] BY AUTOMATED COUNT 34.0 g/dL 32 - 36 09/25 Specimen Type: BLOOD Comment: Values obtained from A1C measurement s can vary. For typical A1C assays, a reported value of 7.0 could actually be between 6.72 and 7.28 if measured by a reference method. A reported value of 9.0 could actually be between 8.73 and 9.27. Ref: [email or web address] Ordering Provider: NURYS CASTRO Report Released Date/Time: Aug 17, 2023 12:25 PM Reporting Lab: [facility] [address] [place] [address] Performing Lab: [facility] [address] [place] [address] [facility] CBC PLATELETS [#/VOLUME] IN BLOOD BY AUTOMATED COUNT 211 10*3/uL 130 - 400 09/25 Specimen Type: BLOOD Comment: Values obtained from A1C measurement s can vary. For typical A1C assays, a reported value of 7.0 could actually be between 6.72 and 7.28 if measured by a reference method. A reported value of 9.0 could actually be between 8.73 and 9.27. Ref: [email or web address] Ordering Provider: NURYS CASTRO Report Released Date/Time: Aug 17, 2023 12:25 PM Reporting Lab: [facility] [address] [place] [address] Performing Lab: [facility] [address] [place] [address] [facility] CBC PLATELET MEAN VOLUME [ENTITIC VOLUME] IN BLOOD BY AUTOMATED COUNT 8.5 fL 7.4 - 10.4 09/25 Specimen Type: BLOOD Comment: Values obtained from A1C measurement s can vary. For typical A1C assays, a reported value of 7.0 could actually be between 6.72 and 7.28 if measured by a reference method. A reported value of 9.0 could actually be between 8.73 and 9.27. Ref: [email or web address] Ordering Provider: NURYS CASTRO Report Released Date/Time: Aug 17, 2023 12:25 PM Reporting Lab: [facility] [address] [place] [address] Performing Lab: [facility] [address] [place] [address] [facility] CBC MONOCYTES/1 00 LEUKOCYTES IN BLOOD BY AUTOMATED COUNT 8.2 4 - 12 09/25 Specimen Type: BLOOD Comment: Values obtained from A1C measurement s can vary. For typical A1C assays, a reported value of 7.0 could actually be between 6.72 and 7.28 if measured by a reference method. A reported value of 9.0 could actually be between 8.73 and 9.27. Ref: [email or web address] Ordering Provider: NURYS CASTRO Report Released Date/Time: Aug 17, 2023 12:25 PM Reporting Lab: [facility] [address] [facility] [address] Performing Lab: [facility] [address] [facility] [address] [facility] CBC EOSINOPHILS /100 LEUKOCYTES IN BLOOD BY AUTOMATED COUNT 1.7 0 - 11.0 09/25 Specimen Type: BLOOD Comment: Values obtained from A1C measurement s can vary. For typical A1C assays, a reported value of 7.0 could actually be between 6.72 and 7.28 if measured by a reference method. A reported value of 9.0 could actually be between 8.73 and 9.27. Ref: [email or web address] Ordering Provider: NURYS CASTRO Report Released Date/Time: Aug 17, 2023 12:25 PM Reporting Lab: [facility] [address] [facility] [address] Performing Lab: [facility] [address] [facility] [address] [facility] CBC BASOPHILS/1 00 LEUKOCYTES IN BLOOD BY AUTOMATED COUNT 0.6 0.0 - 2.0 09/25 Specimen Type: BLOOD Comment: Values obtained from A1C measurement s can vary. For typical A1C assays, a reported value of 7.0 could actually be between 6.72 and 7.28 if measured by a reference method. A reported value of 9.0 could actually be between 8.73 and 9.27. Ref: [email or web address] Ordering Provider: NURYS CASTRO Report Released Date/Time: Aug 17, 2023 12:25 PM Reporting Lab: [facility] [address] [facility] [address] Performing Lab: [facility] [address] [facility] [address] [facility] CBC ERYTHROCYTE DISTRIBUTIO N WIDTH [RATIO] BY AUTOMATED COUNT 13.3 11.5 - 14.5 09/25 Specimen Type: BLOOD Comment: Values obtained from A1C measurement s can vary. For typical A1C assays, a reported value of 7.0 could actually be between 6.72 and 7.28 if measured by a reference method. A reported value of 9.0 could actually be between 8.73 and 9.27. Ref: [email or web address] Ordering Provider: NURYS CASTRO Report Released Date/Time: Aug 17, 2023 12:25 PM Reporting Lab: [address] [address] Performing Lab: [address] [address] [facility] CBC LYMPHOCYTES /100 LEUKOCYTES IN BLOOD BY AUTOMATED COUNT 33.8 20.5 - 51.1 09/25 Specimen Type: BLOOD Comment: Values obtained from A1C measurement s can vary. For typical A1C assays, a reported value of 7.0 could actually be between 6.72 and 7.28 if measured by a reference method. A reported value of 9.0 could actually be between 8.73 and 9.27. Ref: [email or web address] Ordering Provider: NURYS CASTRO Report Released Date/Time: Aug 17, 2023 12:25 PM Reporting Lab: [facility] [address] [facility] [address] Performing Lab: [facility] [address] [place] [address] [facility] CBC NEUTROPHILS /100 LEUKOCYTES IN BLOOD BY AUTOMATED COUNT 55.7 42.2 - 75.2 09/25 Specimen Type: BLOOD Comment: Values obtained from A1C measurement s can vary. For typical A1C assays, a reported value of 7.0 could actually be between 6.72 and 7.28 if measured by a reference method. A reported value of 9.0 could actually be between 8.73 and 9.27. Ref: [email or web address] Ordering Provider: NURYS CASTRO Report Released Date/Time: Aug 17, 2023 12:25 PM Reporting Lab: [facility] [address] [facility] [address] Performing Lab: [facility] [address] [facility] [address] [facility] CBC LYMPHOCYTES [#/VOLUME] IN BLOOD BY AUTOMATED COUNT 2.9 10*3/uL 1.2 - 3.4 09/25 Specimen Type: BLOOD Comment: Values obtained from A1C measurement s can vary. For typical A1C assays, a reported value of 7.0 could actually be between 6.72 and 7.28 if measured by a reference method. A reported value of 9.0 could actually be between 8.73 and 9.27. Ref: [email or web address] Ordering Provider: NURYS CASTRO Report Released Date/Time: Aug 17, 2023 12:25 PM Reporting Lab: [address] [address] Performing Lab: [address] [address] [facility] CBC MONOCYTES [#/VOLUME] IN BLOOD BY AUTOMATED COUNT 0.7 10*3/uL 0.1 - 0.7 09/25 Specimen Type: BLOOD Comment: Values obtained from A1C measurement s can vary. For typical A1C assays, a reported value of 7.0 could actually be between 6.72 and 7.28 if measured by a reference method. A reported value of 9.0 could actually be between 8.73 and 9.27. Ref: [email or web address] Ordering Provider: NURYS CASTRO Report Released Date/Time: Aug 17, 2023 12:25 PM Reporting Lab: [facility] [address] [facility] [address] Performing Lab: [facility] [address] [facility] [address] [facility] CBC NEUTROPHILS [#/VOLUME] IN BLOOD BY AUTOMATED COUNT 4.7 10*3/uL 1.4 - 6.5 09/25 Specimen Type: BLOOD Comment: Values obtained from A1C measurement s can vary. For typical A1C assays, a reported value of 7.0 could actually be between 6.72 and 7.28 if measured by a reference method. A reported value of 9.0 could actually be between 8.73 and 9.27. Ref: [email or web address] Ordering Provider: NURYS CASTRO Report Released Date/Time: Aug 17, 2023 12:25 PM Reporting Lab: [address] [address] Performing Lab: [address] [address] [facility] CBC EOSINOPHILS [#/VOLUME] IN BLOOD BY AUTOMATED COUNT 0.1 10*3/uL 0.0 - 0.7 09/25 Specimen Type: BLOOD Comment: Values obtained from A1C measurement s can vary. For typical A1C assays, a reported value of 7.0 could actually be between 6.72 and 7.28 if measured by a reference method. A reported value of 9.0 could actually be between 8.73 and 9.27. Ref: [email or web address] Ordering Provider: NURYS CASTRO Report Released Date/Time: Aug 17, 2023 12:25 PM Reporting Lab: [address] [address] Performing Lab: [address] [address] [facility] CBC BASOPHILS [#/VOLUME] IN BLOOD BY AUTOMATED COUNT 0.0 10*3/uL 0.0 - 0.2 09/25 Specimen Type: BLOOD Comment: Values obtained from A1C measurement s can vary. For typical A1C assays, a reported value of 7.0 could actually be between 6.72 and 7.28 if measured by a reference method. A reported value of 9.0 could actually be between 8.73 and 9.27. Ref: [email or web address] Ordering Provider: NURYS CASTRO Report Released Date/Time: Aug 17, 2023 12:25 PM Reporting Lab: [address] [place] [address] Performing Lab: [facility] [address] [facility] [address] [facility] COMPREHEN SIVE METABOLIC PROFILE CREATININE [MASS/VOLUM E] IN SERUM OR PLASMA 0.82 mg/dL 0.50 - 1.40 09/25 Specimen Type: PLASMA No comment entered. Ordering Provider: NURYS CASTRO Report Released Date/Time: Aug 17, 2023 12:25 PM Reporting Lab: [address] [address] Performing Lab: [address] [address] [facility] COMPREHEN SIVE METABOLIC PROFILE UREA NITROGEN [MASS/VOLUM E] IN SERUM OR PLASMA 16.2 mg/dL 6.0 - 20.0 09/25 Specimen Type: PLASMA No comment entered. Ordering Provider: NURYS CASTRO Report Released Date/Time: Aug 17, 2023 12:25 PM Reporting Lab: [address] [address] Performing Lab: [address] [address] [facility] COMPREHEN SIVE METABOLIC PROFILE GLUCOSE [MASS/VOLUM E] IN SERUM OR PLASMA 97 mg/dL 70 - 110 09/25 Specimen Type: PLASMA No comment entered. Ordering Provider: NURYS CASTRO Report Released Date/Time: Aug 17, 2023 12:25 PM Reporting Lab: [address] [address] Performing Lab: [address] [address] [facility] COMPREHEN SIVE METABOLIC PROFILE SODIUM [MOLES/VOLU ME] IN SERUM OR PLASMA 139 mmol/L 136 - 145 09/25 Specimen Type: PLASMA No comment entered. Ordering Provider: NURYS CASTRO Report Released Date/Time: Aug 17, 2023 12:25 PM Reporting Lab: [address] [address] Performing Lab: [address] [address] [facility] COMPREHEN SIVE METABOLIC PROFILE POTASSIUM [MOLES/VOLU ME] IN SERUM OR PLASMA 4.10 mmol/L 3.60 - 5.10 09/25 Specimen Type: PLASMA No comment entered. Ordering Provider: NURYS CASTRO Report Released Date/Time: Aug 17, 2023 12:25 PM Reporting Lab: [place] [address] Performing Lab: [place] [address] [place] [address] COMPREHEN SIVE METABOLIC PROFILE CHLORIDE [MOLES/VOLU ME] IN SERUM OR PLASMA 101 mmol/L 98 - 111 09/25 Specimen Type: PLASMA No comment entered. Ordering Provider: NURYS CASTRO Report Released Date/Time: Aug 17, 2023 12:25 PM Reporting Lab: [address] [address] Performing Lab: [place] [address] [place] [address] COMPREHEN SIVE METABOLIC PROFILE CARBON DIOXIDE, TOTAL [MOLES/VOLU ME] IN SERUM OR PLASMA 27.0 mmol/L 22.0 - 31.0 09/25 Specimen Type: PLASMA No comment entered. Ordering Provider: NURYS CASTRO Report Released Date/Time: Aug 17, 2023 12:25 PM Reporting Lab: [address] [address] Performing Lab: [place] [id number] [place] [address] COMPREHEN SIVE METABOLIC PROFILE CALCIUM [MASS/VOLUM E] IN SERUM OR PLASMA 9.40 mg/dL 8.40 - 10.00 09/25 Specimen Type: PLASMA No comment entered. Ordering Provider: NURYS CASTRO Report Released Date/Time: Aug 17, 2023 12:25 PM Reporting Lab: [address] [address] Performing Lab: [place] [phone] [place] [address] COMPREHEN SIVE METABOLIC PROFILE PROTEIN [MASS/VOLUM E] IN SERUM OR PLASMA 8.0 g/dL 6.3 - 8.3 09/25 Specimen Type: PLASMA No comment entered. Ordering Provider: NURYS CASTRO Report Released Date/Time: Aug 17, 2023 12:25 PM Reporting Lab: [address] [address] Performing Lab: [place] [id number] [place] [address] COMPREHEN SIVE METABOLIC PROFILE ALBUMIN [MASS/VOLUM E] IN SERUM OR PLASMA 4.7 g/dL 3.5 - 5.0 09/25 Specimen Type: PLASMA No comment entered. Ordering Provider: NURYS CASTRO Report Released Date/Time: Aug 17, 2023 12:25 PM Reporting Lab: [place] [phone] Performing Lab: [place] [phone] [place] [address] COMPREHEN SIVE METABOLIC PROFILE BILIRUBIN.T OTAL [MASS/VOLUM E] IN SERUM OR PLASMA 0.80 mg/dL 0.20 - 1.30 09/25 Specimen Type: PLASMA No comment entered. Ordering Provider: NURYS CASTRO Report Released Date/Time: Aug 17, 2023 12:25 PM Reporting Lab: [place] [phone] Performing Lab: [place] [phone] [place] [address] COMPREHEN SIVE METABOLIC PROFILE ALKALINE PHOSPHATASE [ENZYMATIC ACTIVITY/VO LUME] IN SERUM OR PLASMA 57 [IU]/L 38 - 126 09/25 Specimen Type: PLASMA No comment entered. Ordering Provider: NURYS CASTRO Report Released Date/Time: Aug 17, 2023 12:25 PM Reporting Lab: [address] [address] Performing Lab: [place] [phone] [place] [address] COMPREHEN SIVE METABOLIC PROFILE ASPARTATE AMINOTRANSF ERASE [ENZYMATIC ACTIVITY/VO LUME] IN SERUM OR PLASMA 21 [IU]/L 15 - 37 09/25 Specimen Type: PLASMA No comment entered. Ordering Provider: NURYS CASTRO Report Released Date/Time: Aug 17, 2023 12:25 PM Reporting Lab: [place] [address] [facility] [address] Performing Lab: [place] [address] [facility] [address] [facility] COMPREHEN SIVE METABOLIC PROFILE ANION GAP 4 IN SERUM OR PLASMA 11.0 mmol/L 8.0 - 16.0 09/25 Specimen Type: PLASMA No comment entered. Ordering Provider: NURYS CASTRO Report Released Date/Time: Aug 17, 2023 12:25 PM Reporting Lab: [address] [address] Performing Lab: [address] [address] [facility] COMPREHEN SIVE METABOLIC PROFILE ALANINE AMINOTRANSF ERASE [ENZYMATIC ACTIVITY/VO LUME] IN SERUM OR PLASMA 25 [IU]/L 17 - 63 09/25 Specimen Type: PLASMA No comment entered. Ordering Provider: NURYS CASTRO Report Released Date/Time: Aug 17, 2023 12:25 PM Reporting Lab: [place] [address] [facility] [address] Performing Lab: [address] [address] [facility] COMPREHEN SIVE METABOLIC PROFILE GLOMERULAR FILTRATION RATE/1.73 SQ M.PREDICTED [VOLUME RATE/AREA] IN SERUM, PLASMA OR BLOOD BY CREATININE- BASED FORMULA (CKD-EPI 2020) >90 09/25 Specimen Type: PLASMA No comment entered. Ordering Provider: NURYS CASTRO Report Released Date/Time: Aug 17, 2023 12:25 PM Reporting Lab: [place] [address] [facility] [address] Performing Lab: [place] [address] [facility] [address] [facility] LIPID PANEL CHOLESTEROL [MASS/VOLUM E] IN SERUM OR PLASMA 253 mg/dL 0 - 200 09/25 H Specimen Type: PLASMA No comment entered. Ordering Provider: NURYS CASTRO Report Released Date/Time: Aug 17, 2023 12:25 PM Reporting Lab: [place] [address] [facility] [address] Performing Lab: [place] [address] [facility] [address] [facility] LIPID PANEL CHOLESTEROL IN HDL [MASS/VOLUM E] IN SERUM OR PLASMA 36 mg/dL 35 - 70 09/25 Specimen Type: PLASMA No comment entered. Ordering Provider: NURYS CASTRO Report Released Date/Time: Aug 17, 2023 12:25 PM Reporting Lab: [place] [address] [facility] [address] Performing Lab: [place] [address] [facility] [address] [facility] LIPID PANEL CHOLESTEROL IN LDL [MASS/VOLUM E] IN SERUM OR PLASMA BY DIRECT ASSAY 178 mg/dL 0 - 130 09/25 H Specimen Type: PLASMA No comment entered. Ordering Provider: NURYS CASTRO Report Released Date/Time: Aug 17, 2023 12:25 PM Reporting Lab: [place] [address] [facility] [address] Performing Lab: [address] [address] [facility] LIPID PANEL TRIGLYCERID E [MASS/VOLUM E] IN SERUM OR PLASMA 225 mg/dL 0 - 200 09/25 H Specimen Type: PLASMA No comment entered. Ordering Provider: NURYS CASTRO Report Released Date/Time: Aug 17, 2023 12:25 PM Reporting Lab: [place] [address] [facility] [address] Performing Lab: [place] [address] [facility] [address] [facility] TSH THYROTROPIN [UNITS/VOLU ME] IN SERUM OR PLASMA 3.09 u[IU]/mL 0.34 - 5.6 09/25 Specimen Type: SERUM No comment entered. Ordering Provider: NURYS CASTRO Report Released Date/Time: Aug 17, 2023 12:25 PM Reporting Lab: [place] [address] [facility] [address] Performing Lab: [address] [address] [facility] URINALYSI S BILIRUBIN.T OTAL [MASS/VOLUM E] IN URINE BY TEST STRIP Negative 09/25 Specimen Type: URINE No comment entered. Ordering Provider: NURYS CASTRO Report Released Date/Time: Aug 17, 2023 12:25 PM Reporting Lab: [facility] [address] [facility] [place] [address] Performing Lab: [facility] [address] [facility] [place] [address] [facility] URINALYSI S KETONES [MASS/VOLUM E] IN URINE BY TEST STRIP Negative 09/25 Specimen Type: URINE No comment entered. Ordering Provider: NURYS CASTRO Report Released Date/Time: Aug 17, 2023 12:25 PM Reporting Lab: [facility] [address] [facility] [address] Performing Lab: [facility] [address] [facility] [place] [address] [facility] URINALYSI S GLUCOSE [PRESENCE] IN URINE BY TEST STRIP NORMAL 09/25 Specimen Type: URINE No comment entered. Ordering Provider: NURYS CASTRO Report Released Date/Time: Aug 17, 2023 12:25 PM Reporting Lab: [facility] [address] [facility] [place] [address] Performing Lab: [facility] [address] [facility] [place] [address] [facility] URINALYSI S PROTEIN [MASS/VOLUM E] IN URINE BY TEST STRIP Negative 09/25 Specimen Type: URINE No comment entered. Ordering Provider: NURYS CASTRO Report Released Date/Time: Aug 17, 2023 12:25 PM Reporting Lab: [facility] [address] [facility] [address] Performing Lab: [facility] [address] [facility] [place] [address] [facility] URINALYSI S COLOR OF URINE YELLOW 09/25 Specimen Type: URINE No comment entered. Ordering Provider: NURYS CASTRO Report Released Date/Time: Aug 17, 2023 12:25 PM Reporting Lab: [facility] [address] [facility] [place] [address] Performing Lab: [facility] [address] [facility] [place] [place] [address] [facility] URINALYSI S HEMOGLOBIN [PRESENCE] IN URINE BY TEST STRIP Negative 09/25 Specimen Type: URINE No comment entered. Ordering Provider: NURYS CASTRO Report Released Date/Time: Aug 17, 2023 12:25 PM Reporting Lab: [facility] [address] [facility] [place] [address] Performing Lab: [facility] [address] [facility] [place] [address] [facility] URINALYSI S NITRITE [PRESENCE] IN URINE BY TEST STRIP Negative 09/25 Specimen Type: URINE No comment entered. Ordering Provider: NURYS CASTRO Report Released Date/Time: Aug 17, 2023 12:25 PM Reporting Lab: [facility] [address] [facility] [place] [address] Performing Lab: [facility] [address] [facility] [place] [address] [facility] URINALYSI S SPECIFIC GRAVITY OF URINE BY TEST STRIP 1.025 1.003 - 1.030 09/25 Specimen Type: URINE No comment entered. Ordering Provider: NURYS CASTRO Report Released Date/Time: Aug 17, 2023 12:25 PM Reporting Lab: [facility] [address] [facility] [place] [address] Performing Lab: [facility] [address] [facility] [place] [address] [facility] URINALYSI S PH OF URINE BY TEST STRIP 6.0 5.0 - 9.0 09/25 Specimen Type: URINE No comment entered. Ordering Provider: NURYS CASTRO Report Released Date/Time: Aug 17, 2023 12:25 PM Reporting Lab: [facility] [address] [facility] [place] [address] Performing Lab: [facility] [address] [facility] [place] [address] [facility] URINALYSI S LEUKOCYTE ESTERASE [PRESENCE] IN URINE BY TEST STRIP Negative 09/25 Specimen Type: URINE No comment entered. Ordering Provider: NURYS CASTRO Report Released Date/Time: Aug 17, 2023 12:25 PM Reporting Lab: [facility] [address] [facility] [address] Performing Lab: [facility] [address] [facility] [address] [facility] URINALYSI S CLARITY OF URINE Clear 09/25 Specimen Type: URINE No comment entered. Ordering Provider: NURYS CASTRO Report Released Date/Time: Aug 17, 2023 12:25 PM Reporting Lab: [facility] [address] [facility] [address] Performing Lab: [facility] [address] [facility] [address] [facility] HEMOGLOBI N A1C HEMOGLOBIN A1C/HEMOGLO BIN.TOTAL IN BLOOD BY HPLC 5.5 4.5 - 5.7 09/25 Specimen Type: BLOOD Comment: Values obtained from A1C measurement s can vary. For typical A1C assays, a reported value of 7.0 could actually be between 6.72 and 7.28 if measured by a reference method. A reported value of 9.0 could actually be between 8.73 and 9.27. Ref: [email or web address] [email or web address]/CAPda [email or web address] Ordering Provider: NURYS CASTRO Report Released Date/Time: Aug 17, 2023 12:25 PM Reporting Lab: [facility] [address] [facility] [address] Performing Lab: [facility] [address] [facility] [address] [facility] MICROALBU MIN/CREAT ININE RATIO MICROALBUMI N [MASS/VOLUM E] IN URINE 9.08 mg/L 0.00 - 19.00 09/25 Specimen Type: URINE No comment entered. Ordering Provider: NURYS CASTRO Report Released Date/Time: Aug 17, 2023 12:25 PM Reporting Lab: [facility] [address] [place] [address] Performing Lab: [facility] [address] [place] [address] [facility] MICROALBU MIN/CREAT ININE RATIO CREATININE [MASS/VOLUM E] IN URINE 227.40 mg/dL 09/25 Specimen Type: URINE No comment entered. Ordering Provider: NURYS CASTRO Report Released Date/Time: Aug 17, 2023 12:25 PM Reporting Lab: [facility] [address] [place] [address] Performing Lab: [facility] [address] [place] [address] [facility] MICROALBU MIN/CREAT ININE RATIO ALBUMIN/CRE ATININE [MASS RATIO] IN URINE 4 30 - 300 09/25 L Specimen Type: URINE No comment entered. Ordering Provider: NURYS CASTRO Report Released Date/Time: Aug 17, 2023 12:25 PM Reporting Lab: [facility] [address] [place] [address] Performing Lab: [facility] [address] [place] [address] [facility] VITAMIN D, 25-HYDROX Y 25-HYDROXYV ITAMIN D3 [MASS/VOLUM E] IN SERUM OR PLASMA 25.9 ng/mL 32.0 - 100.0 09/25 L Specimen Type: SERUM No comment entered. Ordering Provider: NURYS CASTRO Report Released Date/Time: Aug 17, 2023 12:25 PM Reporting Lab: [place] [address] [facility] [address] Performing Lab: [address] [address] [facility] DRUG SCREEN, ABUSE (URINE) BARBITURATE S [PRESENCE] IN URINE BY SCREEN METHOD NEGng/mL 09/25 Specimen Type: URINE No comment entered. Ordering Provider: NURYS CASTRO Report Released Date/Time: Aug 17, 2023 12:25 PM Reporting Lab: [place] [address] [facility] [address] Performing Lab: [place] [address] [facility] [address] [facility] DRUG SCREEN, ABUSE (URINE) AMPHETAMINE [PRESENCE] IN URINE BY SCREEN METHOD NEGng/mL 09/25 Specimen Type: URINE No comment entered. Ordering Provider: UNRYS CASTRO Report Released Date/Time: Aug 17, 2023 12:25 PM Reporting Lab: [place] [address] [facility] [address] Performing Lab: [place] [address] [facility] [address] [facility] DRUG SCREEN, ABUSE (URINE) COCAINE [PRESENCE] IN URINE BY SCREEN METHOD NEGng/mL 09/25 Specimen Type: URINE No comment entered. Ordering Provider: NURYS CASTRO Report Released Date/Time: Aug 17, 2023 12:25 PM Reporting Lab: [address] [address] Performing Lab: [address] [address] [facility] DRUG SCREEN, ABUSE (URINE) BENZODIAZEP VIOLA [PRESENCE] IN URINE BY SCREEN METHOD NEGng/mL 09/25 Specimen Type: URINE No comment entered. Ordering Provider: NURYS CASTRO Report Released Date/Time: Aug 17, 2023 12:25 PM Reporting Lab: [address] [address] Performing Lab: [address] [address] [facility] DRUG SCREEN, ABUSE (URINE) CANNABINOID S [PRESENCE] IN URINE BY SCREEN METHOD NEGng/mL 09/25 Specimen Type: URINE No comment entered. Ordering Provider: NURYS CASTRO Report Released Date/Time: Aug 17, 2023 12:25 PM Reporting Lab: [address] [address] Performing Lab: [address] [address] [facility] DRUG SCREEN, ABUSE (URINE) OPIATES [PRESENCE] IN URINE BY SCREEN METHOD NEGng/mL 09/25 Specimen Type: URINE No comment entered. Ordering Provider: NURYS CASTRO Report Released Date/Time: Aug 17, 2023 12:25 PM Reporting Lab: [address] [address] Performing Lab: [address] [address] [facility] DRUG SCREEN, ABUSE (URINE) PHENCYCLIDI NE [PRESENCE] IN URINE BY SCREEN METHOD NEGng/mL 09/25 Specimen Type: URINE No comment entered. Ordering Provider: NURYS CASTRO Report Released Date/Time: Aug 17, 2023 12:25 PM Reporting Lab: [facility] [address] [facility] [address] Performing Lab: [facility] [address] [facility] [address] [facility] Chemistry POC Glucose 100 mmol/L 70 - 105 05/26 N 7139A-A C-C-[facility]st [facility] OPS [facility] Molecular Infectiou s Disease Reason for Test? Diagnosi s (08/28/20 10:11 AM) 08/28 N 0019A[facility] Molecular Infectiou s Disease SARS-CoV-2 PCR Not Detected (08/28/20 10:11 AM) 08/28 N 0019A[facility] Vital Signs Combined list of inpatient and outpatient Vital Signs from Department of Defense and Veterans Affairs, ranging from 12 months to all on record, depending upon the facility. Vital Sign Value Date Comments Source Respiratory Rate 16 br/min 04/29/2022 20:12:00 8993Z-YT[facility] Peripheral Pulse Rate 92 bpm 04/29/2022 20:12:00 9644G-GQ[facility] Systolic Blood Pressure 132 mm[Hg] 04/29/2022 20:12:00 [id number]-KV-K[facility] Diastolic Blood Pressure 94 mm[Hg] 04/29/2022 20:12:00 1812K-VL[facility] Temperature Oral 36.8 Alejandrina 04/29/2022 20:12:00 7726O-GO-F[facility] Encounters Combined list of: 1) Encounters from Department of Veterans Affairs facilities going backup to the last 18 months, not all VA inpatient encounters are included; 2) Encounters from the Department of Defense facilities going backup to 280 months. Location Location Details Encounter Type Encounter Number Reason For Visit Attending Provider ADM Date DC Date Status Disposition [place] [place] [address]([facility]) OUTPATIENT [id number] Nausea, vomitin g; EMS trainCORINA Galicia 07/07 Released w/o Limitations [facility] [place] [address](F [facility], [facility]) [place] [address]) [facility] [id number] F/U [facility] CAITIE Briggs OD 07/07 Released w/o Limitations [facility] [place] [address] [facility]) [place] [address](Opt ometry Clinic BMT [facility]) OUTPATIENT [id number] Notes Entered by: NEERAJ BLANCO 08 Jul 2015 0828 ------- ------- ------- ------- -- NEERAJ RIBEIRO. 07/08 Released w/o Limitations [facility] [place] [address](O ptometr y Clinic BMT [facility]) [place] [address]([facility]a ring Conservat ion, BMT) OUTPATIENT [id number] SKYLAR STANLEY 07/08 Released w/o Limitations [facility] [place] [address]([facility] e[facility] at[facility], B[facility]) [place] [address]([facility]) OUTPATIENT [id number] Notes Entered by: Colleen FLEMING 12 Jul 2015 1455 ------- ------- ------- ------- -- Strep Prophyl axis - Late Entry MEERA FLEMING 07/12 Released w/o Limitations [facility] [place] [address](Louis Negrete) [place] [address]([facility]) OUTPATIENT [id number] PARUL Mckeon 09/24 Released with Work/Duty Limitations [facility] [place] [address] [facility] d) [place] [address](Ort hopedics, [facility]) OUTPATIENT [id number] Pain in right finger( s) SONIA YANG C 09/28 Released w/o Limitations [facility] [place] [address](O rthoped ics, [facility]) [place] [address]([facility]) OUTPATIENT [id number] F/u L IONA Levine 10/01 Released with Work/Duty Limitations [facility] [place] [address]([address] [facility]) [place] [address] OUTPATIENT [id number] PAINFUL URINATI ON X2 DAYS MANJIT FOLEY 10/09 Released w/o Limitations [facility] [place] [address]([address] [facility] d) [place] [address]([facility]) OUTPATIENT [id number] f/u ortho for poss RTT, needs hand SAQIB Urban 10/14 Released w/o Limitations [facility] [place] [address]([facility] d) [place] [address]([facility]) OUTPATIENT [id number] F/U FINGER FX JOHN KENNY 10/19 Released w/o Limitations [facility] [place] [address]([facility]) [facility] [employer](Med /Clin In and Out Processin g) TELE CONSULT [id number] Notes Entered by: TIMMY WHITT 22 Feb 2016 1426 ------- ------- ------- ------- -- Medical In-Proc TIMMY Ruiz 02/21 [employer] [employer](M ed/Clin In and Out Process ing) [employer] [employer](BOM C1) OUTPATIENT [id number] Notes Entered by: TABBY KEITH 26 Apr 2016 1410 ------- ------- ------- ------- -- Annual PHA DANIEL KAYE 04/26 Released w/o Limitations [employer] [employer](B OMC1) [employer] [employer](Uti t Medicine Clinic) OUTPATIENT [id number] pha/ART Han 06/08 Released w/o Limitations [employer](F light Medicin e Clinic) [employer]([place] Team) TELE CONSULT [id number] Notes Entered by: FARIDEH GRAY 22 Sep 2017 0940 ------- ------- ------- ------- -- AD - Referra l to ER - SOB and Chest Pain KIM WEBSTER 09/22 Referred for Appointment [employer] [employer](G emini Team) [employer]([place] [facility]) OUTPATIENT [id number] Chest pain, SOB, incompl ete PT test 23 SEP 2017 ELENO CACERES 09/26 Released w/o Limitations [employer](G emini Team) [employer](BOM C1) TELE CONSULT [id number] Notes Entered by: GI HANDY 03 Jan 2018 0943 ------- ------- ------- ------- -- See ASIMS for JENNY rodrigues/MARYANN Feliz 01/03 [employer] [employer](B OMC1) [employer](BOM C1) TELE CONSULT [id number] Notes Entered by: GI HANDY 09 Jan 2018 1327 ------- ------- ------- ------- -- Medical record review. GI HANDY Elmo 01/09 Other Not Elsewhere Classified [employer] [employer](B OMC1) [employer]([place] Team) TELE CONSULT [id number] Notes Entered by: LEONCIO ESCOBAR 23 Mar 2018 1129 ------- ------- ------- ------- -- NO SHOW LEONCIO ESCOBAR 03/23 Referred for Appointment [employer] [employer](G emini Team) [employer]([place] Team) OUTPATIENT [id number] painful tailbon e due to a fall x 2 days ago SURINDER CHURCH 05/01 Released w/o Limitations [employer](G emini Team) [employer]([place]) TELE CONSULT [id number] Notes Entered by: SURINDER CHURCH 02 May 2018 1622 ------- ------- ------- ------- -- Rad results ESPINALSULLY Lara Inge 05/03 Other Not Elsewhere Classified [employer] [employer](G emini Team) [employer] [employer]([place] Team) TELE CONSULT [id number] Notes Entered by: Kyrie FOLEY 04 May 2018 1354 ------- ------- ------- ------- -- AD er referFRANSICO Shepherd 05/04 Referred for Appointment [employer] [employer](G emini Team) [employer] [employer]([place] [facility]) OUTPATIENT [id number] ER f/u tailbon e injury still having pain SURINDER CHURCH 05/11 Released w/o Limitations [employer](G emini Team) [employer] [employer]([place]) OUTPATIENT [id number] termina jeanna PT test SURINDER CHURCH 05/22 Released w/o Limitations [employer](G emini Team) [employer]([place] Team) OUTPATIENT [id number] continu ing back pain SURINDER CHURCH 12/01 Released w/o Limitations [employer] [employer](G emini Team) [employer] [employer](Opt ometry Clinic) OUTPATIENT [id number] Notes Entered by: CAROLINA ASHRAF I 08 Jan 2019 1048 ------- ------- ------- ------- -- laser eye exam YANN SOLIS 01/08 Released w/o Limitations [employer] [employer](O ptometr y Clinic) [employer] [employer]([place] Team) TELE CONSULT [id number] Notes Entered by: Bailee SOLIS 08 Jan 2019 1100 ------- ------- ------- ------- -- Do not BRISEYDA Peraza 01/08 Other Not Elsewhere Classified [employer](G emini Team) [employer] [employer](BOM C1) OUTPATIENT [id number] Notes Entered by: FILIPPO BEAVERS 23 Mar 2019 1352 ------- ------- ------- ------- -- MHA FILIPPO BEAVERS 03/23 Released w/o Limitations [employer] [employer](B OMC1) [facility] [employer](BOM C1 Non-Clini ashli) OUTPATIENT [id number] Notes Entered by: AGNES VELOZ 09 Apr 2019 1140 ------- ------- ------- ------- -- ANNUAL PHA SURINDER CHURCH 04/09 Released w/o Limitations [employer](B OMC1 Non-Cli nical) [employer]([place] Team) OUTPATIENT [id number] Manuela SURINDER Clifton 05/25 Released w/o Limitations [employer](G emini Team) [employer]([place] Team) TELE CONSULT [id number] Notes Entered by: ROMEO HAGAN 11 Jun 2019 1019 ------- ------- ------- ------- -- Profile CHRIS PATEL 06/11 Referred for Appointment [employer](G emini Team) [employer]([place] Team) OUTPATIENT [id number] Profile request . SURINDER CHURCH 06/12 Released w/o Limitations [employer](G emini Team) [employer](Hea ring Conservat ion) OUTPATIENT [id number] hearing SOPHIA LUO 06/18 Released w/o Limitations [employer](H earing Conserv ation) [employer](Fish n [facility] Team A) OUTPATIENT [id number] Notes Entered by: BART KAUR 19 Oct 2019 1150 ------- ------- ------- ------- -- Sleep concern s [id number] MARIO ARTHUR 10/18 Released w/o Limitations [employer](O su [facility] Team A) [employer](OAB Emergency ) OUTPATIENT [id number] SAQIB MONTENEGRO 01/02 Released w/o Limitations [employer](O AB Emergen cy) [employer](War rior Operation al Med A-AD) OUTPATIENT [id number] painful bump on chest issue consult x 1day MARIO ARTHUR 02/18 Released w/o Limitations [employer](W arrior Operati onal Med A-AD) [employer](War rior Operation al Med A-AD) TELE CONSULT [id number] Notes Entered by: DIAMANTE ARTHUR 21 Feb 2020 1450 ------- ------- ------- ------- -- US result JCARLOS BRIAN 02/20 Referred for Appointment [employer](W arrior Operati onal Med A-AD) [employer](War rior Operation al Med A-AD) TELE CONSULT [id number] Notes Entered by: INA MORA 22 Feb 2020 1406 ------- ------- ------- ------- -- ultra sound result JCARLOS BRIAN 02/21 Other Not Elsewhere Classified [employer](W arrior Operati onal Med A-AD) [employer](War rior Operation al Med A-AD) OUTPATIENT [id number] sebaceo us Cyst Excised MARIO ARTHUR 02/21 Released with Work/Duty Limitations [employer](W arrior Operati onal Med A-AD) [employer](War rior Operation al Med A-AD) OUTPATIENT [id number] Notes Entered by: CLAUDETTE PRESTON 18 Mar 2020 0802 ------- ------- ------- ------- -- Walk-in Suture Removal ROXANA SANCHEZ 03/17 Released w/o Limitations [employer](W arrior Operati onal Med A-AD) [employer](War rior Operation al Med A-AD) OUTPATIENT [id number] back pain MARIO ARTHUR 03/17 Released with Work/Duty Limitations [employer](W arrior Operati onal Med A-AD) [employer](OAB Physical Therapy) OUTPATIENT [id number] Pain in left shoulde r DANIELEEARL KILPATRICK Bailee 03/31 Released w/o Limitations [employer](O AB Physica l Therapy ) [employer](War rior Operation al Med A-AD) TELE CONSULT [id number] Notes Entered by: MARK LAGUNA 31 Mar 2020 1036 ------- ------- ------- ------- -- BRBPR NURSE: Please triage/ book appoint ment with PCM if needed. JCARLOS BRIAN 03/31 Referred for Appointment [employer](W arrior Operati onal Med A-AD) [employer](War rior Operation al Med A-AD) OUTPATIENT [id number] Havin 3 episode of bloody stool for 1 Month /[id number] STEPHEN LAGUNA 03/31 Released w/o Limitations [employer](W arrior Operati onal Med A-AD) [employer](OAB Physical Therapy) OUTPATIENT [id number] LBP and L shoulde r pain DANIELE, EARL R 04/03 Released w/o Limitations [employer](O AB Physica l Therapy ) [employer]( rior Operation al Med A-AD) TELE CONSULT [id number] Notes Entered by: MARK LAGUNA T 07 Apr 2020 0955 ------- ------- ------- ------- -- CT result JCARLOS BRIAN 04/07 Referred for Appointment [employer](W arrior Operati onal Med A-AD) [employer]( rior Operation al Med A-AD) TELE CONSULT [id number] Notes Entered by: DIAMANTE ARTHUR 07 Apr 2020 1055 ------- ------- ------- ------- -- Book f/u appt JCARLOS BRIAN 04/07 Referred for Appointment [employer](W arrior Operati onal Med A-AD) [employer](War rior Operation al Med A-AD) OUTPATIENT [id number] Low back pain/ [id number] MARIO ARTHUR 04/07 Released with Work/Duty Limitations [employer](W arrior Operati onal Med A-AD) [employer](OAB Internal Medicine) OUTPATIENT [id number] Tremor, unspeci fied ZEFERINO MEYERS 04/14 Released w/o Limitations [employer](O AB Interna l Medicin e) [employer](War rior Operation al Med A-AD) TELE CONSULT [id number] Notes Entered by: DIAMANTE ARTHUR 23 Apr 2020 0954 ------- ------- ------- ------- -- MRI result JCARLOS BRIAN 04/23 Referred for Appointment [employer](W arrior Operati onal Med A-AD) [employer]( rior Operation al Med A-AD) TELE CONSULT [id number] Notes Entered by: DIAMANTE ARTHUR 28 Apr 2020 0725 ------- ------- ------- ------- -- vitamin d deficie nt JCARLOS BRIAN 04/27 Referred for Appointment [employer](W arrior Operati onal Med A-AD) [employer](War rior Operation al Med A-AD) OUTPATIENT [id number] MRI f/u / [id number] MARIO ARTHUR 05/22 Released with Work/Duty Limitations [employer](W arrior Operati onal Med A-AD) [employer](OAB Immunizat ions Clinic) OUTPATIENT [id number] Notes Entered by: Marco GERMAN 23 May 2020 1535 ------- ------- ------- ------- -- Covid 19 Vaccine ASHELY Case 05/23 Released w/o Limitations [employer] [employer]( rior Operation al Med A-AD) TELE CONSULT [id number] Notes Entered by: AMY BOBBY 17 Jun 2020 1448 ------- ------- ------- ------- -- Network Results -Sleep Study-0 06/06/19 21 JCARLOS BRIAN 06/17 Referred for Appointment [employer](W arrior Operati onal Med A-AD) [employer]( rior Operation al Med A-AD) OUTPATIENT [id number] previou s visit f/u..01 [id number] MARIO ARTHUR 07/01 Released with Work/Duty Limitations [employer](W arrior Operati onal Med A-AD) [employer](Bas e Operation al Medicine Cell) OUTPATIENT [id number] OSCRAQUEL HERNANDEZ ESTRELLA DELGADO Jermaine 07/10 Released w/o Limitations [employer](B ase Operati onal Medicin e Cell) [employer](OAB Hearing Conservat ion) OUTPATIENT [id number] Notes Entered by: DOMINGA MONTOYA 11 Jul 2020 1018 ------- ------- ------- ------- -- WILFRID/Katina hackett Audiogr am DOMINGA MONTOYA 07/11 Released w/o Limitations [employer](O AB Hearing Conserv ation) [employer]([facility] Blue) OUTPATIENT [id number] L ankle tripped - swallow ing - denied COVID wxf FER DUGAN 10/06 Released with Work/Duty Limitations [employer](L ak [facility] Blue) [employer]([facility] PRP_Clini c) TELE CONSULT [id number] Notes Entered by: Azul HAYS 14 Oct 2020 1512 ------- ------- ------- ------- -- PCM Antwon- erika fut appt MIREYA ALEXANDER 10/14 Referred for Appointment [employer]([facility] PRP_Cli truong) [employer]([facility] PRP_Clini c) OUTPATIENT [id number] L chest wall skin growth grew back followi ng surg Apr 04 PEDRO SOLORIO 10/16 Released w/o Limitations [employer](L nm PRP_Cli truong) [employer]([facility] Ops Medicine_ Clinic) OUTPATIENT [id number] Notes Entered by: SHANTA JACKSON 21 Oct 2020 0740 ------- ------- ------- ------- -- SHANTA KIRAN 10/21 Released w/o Limitations [employer](L ak Base Ops Medicin e_Clini c) [employer]([facility] PRP_Clini c) OUTPATIENT [id number] Notes Entered by: VANI DALLAS 21 Oct 2020 1034 ------- ------- ------- ------- -- PEDRO CRANE 10/21 Released w/o Limitations [employer](L ak PRP_Cli truong) [employer]([facility] Neurology Clinic) OUTPATIENT [id number] Fascicu lation VALERIE PATRICIO 10/27 Released w/o Limitations [employer](L ak Neurolo gy Clinic) [employer]([facility] PRP_Clini c) OUTPATIENT [id number] ongoing left ankle and foot issues PAULINO KHAN 11/07 Released w/o Limitations [employer](L nm PRP_Cli truong) [facility] Dermatolo gy Clinic) OUTPATIENT [id number] Localiz ed swellin g, mass and lump, unspeci fiEDUARDO Márquez 11/11 Released w/o Limitations [employer](L ak Dermato logy Clinic) [facility] [employer]([facility] Neurology Clinic) OUTPATIENT [id number] EMG VALERIE PATRICIO 11/20 Released w/o Limitations [employer](L ak Neurolo gy Clinic) [facility] [employer]([facility] Physical Medicine Clinic) OUTPATIENT [id number] ankle/f oot VALERIE HERNANDEZ 11/25 Released w/o Limitations [employer](L ak Physica l Medicin e Clinic) [employer]([facility] Physical Medicine Clinic) OUTPATIENT [id number] l foot/an kle VALERIE HERNANDEZ 12/09 Released w/o Limitations [employer](L ak Physica l Medicin e Clinic) [facility] COVID-19 Clinic) TELE CONSULT [id number] Notes Entered by: SUSHILA RYDER 05 Feb 2021 1119 ------- ------- ------- ------- -- PCM; Raji Hoodx ANY Chery 02/05 [employer](L nm COVID-1 9 Clinic) [facility] [employer]([facility] PRP_Clini c) TELE CONSULT [id number] Notes Entered by: RONNELL MONTALVO 06 Feb 2021 1537 ------- ------- ------- ------- -- lab results BRANDON MONTALVO 02/06 [employer]([facility] PRP_Cli truong) [employer]([facility] PRP_Clini c) OUTPATIENT [id number] Sore throat and congest ion, negativ e covid test BRANDON MONTALVO 02/09 Released w/o Limitations [employer](L nm PRP_Cli truong) [facility] [employer]([facility] PRP_Clini c) TELE CONSULT [id number] Notes Entered by: RONNELL MONTALVO 10 Feb 2021 1546 ------- ------- ------- ------- -- rad result MEGHANA ESPINOSA 02/10 [employer]([facility] PRP_Cli truong) [facility] Audiology ) OUTPATIENT [id number] Notes Entered by: ESTER MUNOZ 13 Mar 2021 0925 ------- ------- ------- ------- -- HPD Fit testing ROLANDO CANALES 03/13 Released w/o Limitations [employer]([facility] Audiolo gy) [employer]([facility] Physical Medicine [facility]) OUTPATIENT [id number] l foot DA ACE 03/25 Released w/o Limitations [employer]([facility] Physica l Medicin e Clinic) [facility] [employer]([facility] Physical Medicine [facility]) OUTPATIENT [id number] Left foot MILADYS STANLEY 04/02 Released w/o Limitations [employer]([facility] Physica l Medicin e Clinic) [employer]([facility] Physical Medicine Clinic) OUTPATIENT [id number] Left foot KELSIE MARUQEZ A 04/08 Released w/o Limitations [employer](L ak Physica l Medicin e Clinic) [employer]([facility] Optometry Clinic) OUTPATIENT [id number] REE-gla MONIQUE Benitez 04/13 Released w/o Limitations [employer](L ak Optomet ry Clinic) [employer]([facility] Physical Medicine Clinic) OUTPATIENT [id number] left foot CORNELIA ARCHULETA A 04/14 Released w/o Limitations [employer](L ak Physica l Medicin e Clinic) [employer]([facility] Physical Medicine Clinic) OUTPATIENT [id number] left foot KELSIE MARQUEZ A 04/21 Released w/o Limitations [employer](L ak Physica l Medicin e Clinic) [employer]([facility] Physical Medicine Clinic) OUTPATIENT [id number] 1 Left foot DA ACE 04/27 Released w/o Limitations [employer](L ak Physica l Medicin e Clinic) [employer]([facility] Physical Medicine Clinic) OUTPATIENT [id number] CORNELIA ARCHULETA A 05/18 Released w/o Limitations [employer](L ak Physica l Medicin e Clinic) [employer]([facility] Physical Medicine Clinic) OUTPATIENT [id number] CORNELIA ARCHULETA A 05/25 Released w/o Limitations [employer](L ak Physica l Medicin e Clinic) [employer]([facility] Physical Medicine Clinic) OUTPATIENT [id number] CORNELIA ARCHULETA A 06/02 Released w/o Limitations [employer](L ak Physica l Medicin e Clinic) [employer]([facility] Physical Medicine Clinic) OUTPATIENT [id number] CORNELIA ARCHULETA A 06/08 Released w/o Limitations [employer](L ak Physica l Medicin e Clinic) [employer]([facility] PRP_Clini c) OUTPATIENT [id number] lump on chest irritat ed/bvur ining feeling - denies BRANDON Barros 06/12 Released w/o Limitations [employer]([facility] PRP_Cli truong) [employer]([facility] Physical Medicine [facility]) OUTPATIENT [id number] DA Monroe 06/15 Released w/o Limitations [employer](L ak Physica l Medicin e Clinic) [employer]([facility] Physical Medicine [facility]) OUTPATIENT [id number] MAURICIO CANALES E 07/02 Released w/o Limitations [employer]([facility] Physica l Medicin e Clinic) [employer]([facility] Dermatolo gy Clinic) OUTPATIENT [id number] Epiderm al cyst EDUARDO YUNG 07/02 Released w/o Limitations [employer]([facility] Dermato logy Clinic) [facility] Dermatolo gy Clinic) OUTPATIENT [id number] excisio n EDUARDO YUNG 08/03 Released w/o Limitations [employer]([facility] Dermato logy [facility]) [facility] [employer]([facility] Conservat ion Clinic) OUTPATIENT [id number] ANNUAL AUOF 501A [id number] VERNON REYES S 08/04 Released w/o Limitations [employer]( earing Conserv ation Clinic) [facility] [employer]([facility] Conservat ion [facility]) OUTPATIENT [id number] FOLLOW- UP AUDIOGR AM,123A /[id number] VERNON REYES S 08/10 Released w/o Limitations [employer]( earing Conserv ation Clinic) [facility] [employer]([facility] Dermatolo gy [facility]) TELE CONSULT [id number] Notes Entered by: DURAN YUNG 17 Aug 2021 1646 ------- ------- ------- ------- -- tissue results EDUARDO YUNG 08/17 [employer]([facility] Dermato logy Clinic) [employer]([facility] Audiology ) OUTPATIENT [id number] PTS, 123a [id number] ROLANDO CANALES 08/20 Released w/o Limitations [employer]([facility] Audiolo gy) [facility] [employer]([facility] PRP_Clini c) TELE CONSULT [id number] Notes Entered by: NATALIIAPRESTON VAMSHI 10 Sep 2021 1027 ------- ------- ------- ------- -- [facility] results _gastro _27Apr2 2 BRANDON MONTALVO 09/10 [employer]([facility] PRP_Cli truong) [employer]([facility] Audiology ) OUTPATIENT [id number] Audio/H earing Concern s KHRIS Apolinar JAMAALTAMIKA Olmedo 09/25 Released w/o Limitations [employer]([facility] Audiolo gy) [employer]([facility] General Surgery Clinic) OUTPATIENT [id number] GERD MARTA CAMP S 10/01 Released w/o Limitations [employer]([facility] General Surgery Clinic) [facility] [employer]([facility] PRP_Clini c) OUTPATIENT [id number] AUoF-mi ddle/lo wer back pain not getting better YOLIE ARIAS 10/19 Released w/o Limitations [employer]([facility] PRP_Cli truong) [employer]([facility] Neurology Clinic) OUTPATIENT [id number] Tinnitu sblanca STEVEN C 11/18 Released w/o Limitations [employer]([facility] Neurolo gy Clinic) [facility] [employer]([facility] Ops Medicine_ Clinic) OUTPATIENT [id number] Notes Entered by: SHANTA JACKSON 26 Jan 2022 1354 ------- ------- ------- ------- -- [facility] SHANTA JACKSON 01/26 Released w/o Limitations [employer]([facility] Base Ops Medicin e_Clini c) [employer]([facility] PRP_Clini c) OUTPATIENT [id number] Notes Entered by: LORNA AMADOR 11 Feb 2022 0933 ------- ------- ------- ------- -- AUOF PHA YOLIE ARIAS 02/11 Released w/o Limitations [employer]([facility] PRP_Cli truong) [employer]([facility] Mental [facility]) OUTPATIENT [id number] Notes Entered by: EDSON COLIN M 16 Feb 2022 1429 ------- ------- ------- ------- -- Outproc kike DALLASX DIXIE THAI M 02/16 Released w/o Limitations [employer]([facility] Mental [facility]) [employer]([facility] PRP_Clini c) OUTPATIENT [id number] SHPE FER SHAFFER M 02/17 Released w/o Limitations [employer]([facility] PRP_Cli truong) [facility] Utilizati on Managemen t) TELE CONSULT [id number] Notes Entered by: LALO MOODY 28 Apr 2022 1415 ------- ------- ------- ------- -- NAL 022 09:38 BRANDON MAXWELL 04/28 [facility] Medical [facility] Utiliza tion Managem ent) [facility] Outpatient Encounter [id number] 09/14 [facility] Outpatient Encounter [id number] 09/29 [facility] Outpatient Encounter [id number] TOÑO MONTES 10/04 [facility] OFFICE O/P EST MOD 30 MIN [id number] Diagnos is: ICD-10- CM E78.5 Hyperli pidemia , unspeci NURYS Gu 10/05 [facility] ASS[facility]REAS SESS[facility] [id number] Diagnos is: ICD-10- CM Z74.1 Need for assista nce with personFIGUEROA Baxter 10[facility]11 [facility] Outpatient Encounter [id number] 10/11 [place] [facility] En[facility] [id number] 10/27 [place] [facility] Outpatient Encounter [id number] 10/27 [facility] Outpatient Encounter [id number] 11/17 [facility] [id number] 11/[address] [facility] [id number] 11[facility] Outpatient Encounter [id number] DORIS GUERRERO 12/04 [facility] Outpatient Encounter [id number] MILTON MARSHALL 01/23 [facility] Outpatient Encounter [id number] 05/28 [facility] Outpatient Encounter [id number] JOSE CAM RIL L 05/29 [facility] Outpatient Encounter [id number] JOSE CAM RIL L 07/03 [facility] Outpatient Encounter [id number] 07/10 [facility] Outpatient Encounter [id number] 07/11 [facility] Outpatient Encounter [id number] 07/16 [facility] Outpatient Encounter [id number] RADHA [facility] J 07/20 [place] [facility] TARGETED CASE MANAGEMENT [id number] Elmo CAREY 08/07 [facility] Outpatient Encounter [id number] 08/08 [facility] Outpatient Encounter [id number] 10/02 [facility] Procedures Combined list of: 1) Procedures from Department of [facility], not all CT non-surgical procedures are included; 2) All procedures from the Department of Defense facilities. Procedure Procedure Type Code Date Perfomer Comments Sourc e No data available for this section [facility] ELECTROCARDIOGRAM, ROUTINE ECG WITH AT LEAST 12 LEADS; WITH INTERPRETATION AND REPORT 2018 DoD THERAPEUTIC, PROPHYLACTIC, OR DIAGNOSTIC INJECTION (SPECIFY SUBSTANCE OR DRUG); SUBCUTANEOUS OR INTRAMUSCULAR 2015 DoD PURE TONE AUDIOMETRY (THRESHOLD), AUTOMATED; AIR ONLY 2015 DoD SCREENING TEST OF VISUAL ACUITY, QUANTITATIVE, BILATERAL 2015 DoD PURE TONE AUDIOMETRY (THRESHOLD), AUTOMATED; AIR ONLY 2019 DoD BRIEF EMOTIONAL/BEHAVIORAL ASSESSMENT (EG, DEPRESSION INVENTORY, ATTENTION-DEFICIT/HY PERACTIVITY DISORDER [ADHD] SCALE), WITH SCORING AND DOCUMENTATION, PER STANDARDIZED INSTRUMENT 2018 DoD BRIEF COMM TECH-BASE SERV,E.G. VIRT CHK-IN,BY PHYS/OTH QUAL HCP,RPT E&M SERV,PROV TO EST PT,NOT ORIG FRM REL E/M SERV PROV W/IN PREV 7DAY NOR LEAD TO E/M SRV/PX W/IN NEXT 24HR/SOON ANTONIO; 5-10 MIN DISC 2018 DoD FITTING OF SPECTACLES, EXCEPT FOR APHAKIA; MONOFOCAL 2018 DoD BRIEF EMOTIONAL/BEHAVIORAL ASSESSMENT (EG, DEPRESSION INVENTORY, ATTENTION-DEFICIT/HY PERACTIVITY DISORDER [ADHD] SCALE), WITH SCORING AND DOCUMENTATION, PER STANDARDIZED INSTRUMENT 2018 [facility] NEUROPSYCHOLOGICAL TESTING (EG, [place] CARD SORTING TEST), ADMINISTERED BY A COMPUTER, WITH QUALIFIED HEALTH PIECE HAND INTERPRETATION AND REPORT 2017 [facility] ADMINISTRATION OF PATIENT-FOCUSED HEALTH RISK ASSESSMENT INSTRUMENT (EG, HEALTH HAZARD APPRAISAL) WITH SCORING AND DOCUMENTATION, PER STANDARDIZED INSTRUMENT 2017 DoD PURE TONE AUDIOMETRY (THRESHOLD), AUTOMATED; AIR ONLY 2020 DoD PSYCHIATRIC EVALUATION OF HOSPITAL RECORDS, OTHER PSYCHIATRIC REPORTS, PSYCHOMETRIC AND/OR PROJECTIVE TESTS, AND OTHER ACCUMULATED DATA FOR MEDICALDIAGNOSTIC PURPOSES 2020 [facility] RE-EVAL,PHYSICAL THERAPY EST PLAN OF CARE,REQ:EXAM,REV,HX & USE,STAND TESTS &SYL REQ;REV PLAN OF CARE USING STAND PAT ASSESS INSTR &/SYL ASSESS FUNC OUTCOME TYP,20 MIN SPENT [id number] W PAT&/FAM 2019 [facility] PHYSICAL THERAPY EVALUATION:HIGH COMPLEXITY,REQ:HIST PRES PROB,3+ PERS FACT &/COMORB,IMPACT PLAN OF CARE;CLIN DECIS MAKING OF HIGH COMPLEX,TYPICAL,45 MIN ARE SPENT BDLX-HE-AUPT W THE PATIENT &/FAMILY 2019 [facility] INCISIONAL BIOPSY OF SKIN (EG, WEDGE) (INCLUDING SIMPLE CLOSURE, WHEN PERFORMED); SINGLE LESION 2019 DoD WAIVER SERVICES; NOT OTHERWISE SPECIFIED (NOS) 2019 DoD PSYCHIATRIC EVALUATION OF HOSPITAL RECORDS, OTHER PSYCHIATRIC REPORTS, PSYCHOMETRIC AND/OR PROJECTIVE TESTS, AND OTHER ACCUMULATED DATA FOR MEDICALDIAGNOSTIC PURPOSES 2021 DoD ADMINISTRATION OF PATIENT-FOCUSED HEALTH RISK ASSESSMENT INSTRUMENT (EG, HEALTH HAZARD APPRAISAL) WITH SCORING AND DOCUMENTATION, PER STANDARDIZED INSTRUMENT 2021 DoD INJECTION, KETOROLAC TROMETHAMINE, PER 15 MG 2021 DoD ADMINISTRATION OF PATIENT-FOCUSED HEALTH RISK ASSESSMENT INSTRUMENT (EG, HEALTH HAZARD APPRAISAL) WITH SCORING AND DOCUMENTATION, PER STANDARDIZED INSTRUMENT 2021 DoD SPEECH AUDIOMETRY THRESHOLD; 2021 DoD PURE TONE AUDIOMETRY (THRESHOLD), AUTOMATED; AIR ONLY 2021 DoD PURE TONE AUDIOMETRY (THRESHOLD), AUTOMATED; AIR ONLY 2021 DoD EXCISION, BENIGN LESION INCLUDING MARGINS, EXCEPT SKIN TAG (UNLESS LISTED ELSEWHERE), TRUNK, ARMS OR LEGS; EXCISED DIAMETER 0.6 TO 1.0 CM 2021 DoD THERAPEUTIC PROCEDURE, 1 OR MORE AREAS, EACH 15 MINUTES; THERAPEUTIC EXERCISES TO DEVELOP STRENGTH AND ENDURANCE, RANGE OF MOTION AND FLEXIBILITY 2021 DoD PHYSICAL THERAPY EVALUATION:LOW COMPLEXITY,REQ:HIST W NO PERS FACT &/COMORB THAT IMPACT PLAN OF CARE;CLIN DECIS MAKING OF LOW COMPLEXITY,TYPICALLY ,20 MIN ARE SPENT [id number] W THE PATIENT &/FAMILY 2021 DoD APPLICATION OF A MODALITY TO 1 OR MORE AREAS; VASOPNEUMATIC DEVICES 2021 DoD APPLICATION OF A MODALITY TO 1 OR MORE AREAS; HOT OR COLD PACKS 2021 DoD APPLICATION OF A MODALITY TO 1 OR MORE AREAS; HOT OR COLD PACKS 2021 DoD APPLICATION OF A MODALITY TO 1 OR MORE AREAS; HOT OR COLD PACKS 2021 DoD RE-EVAL,PHYSICAL THERAPY EST PLAN OF CARE,REQ:EXAM,REV,HX & USE,STAND TESTS &SYL REQ;REV PLAN OF CARE USING STAND PAT ASSESS INSTR &/SYL ASSESS FUNC OUTCOME TYP,20 MIN SPENT [id number] W PAT&/FAM 2020 DoD APPLICATION OF A MODALITY TO 1 OR MORE AREAS; HOT OR COLD PACKS 2020 DoD APPLICATION OF A MODALITY TO 1 OR MORE AREAS; HOT OR COLD PACKS 2020 DoD FITTING OF SPECTACLES, EXCEPT FOR APHAKIA; MONOFOCAL 2020 DoD APPLICATION OF A MODALITY TO 1 OR MORE AREAS; HOT OR COLD PACKS 2020 DoD APPLICATION OF A MODALITY TO 1 OR MORE AREAS; HOT OR COLD PACKS 2020 DoD THERAPEUTIC PROCEDURE, 1 OR MORE AREAS, EACH 15 MINUTES; THERAPEUTIC EXERCISES TO DEVELOP STRENGTH AND ENDURANCE, RANGE OF MOTION AND FLEXIBILITY 2020 DoD EAR PROTECTOR ATTENUATION MEASUREMENTS 2020 DoD RE-EVAL,PHYSICAL THERAPY EST PLAN OF CARE,REQ:EXAM,REV,HX & USE,STAND TESTS &SYL REQ;REV PLAN OF CARE USING STAND PAT ASSESS INSTR &/SYL ASSESS FUNC OUTCOME TYP,20 MIN SPENT [id number] W PAT&/FAM 2020 DoD EXERCISE EQUIPMENT 2020 DoD NEEDLE ELECTROMYOGRAPHY,EA EXTREMITY,W RELATED PARASPINAL AREAS,WHEN PERFORMED,DONE W NERVE CONDUCTION,AMPLITUDE &LATENCY/VELOCITY STUDY;LIMITED (LIST SEPARATELY IN ADDITION TO CODE FOR PRIMARY PROC) 2020 [facility] ADMINISTRATION OF PATIENT-FOCUSED HEALTH RISK ASSESSMENT INSTRUMENT (EG, HEALTH HAZARD APPRAISAL) WITH SCORING AND DOCUMENTATION, PER STANDARDIZED INSTRUMENT 2020 [facility] BRIEF COMM TECH-BASE SERV,E.G. VIRT CHK-IN,BY PHYS/OTH QUAL HCP,RPT E&M SERV,PROV TO EST PT,NOT ORIG FRM REL E/M SERV PROV W/IN PREV 7DAY NOR LEAD TO E/M SRV/PX W/IN NEXT 24HR/SOON ANTONIO; 5-10 MIN DISC 2020 [facility] Threshold Audiogram (Pure Tone) Automated Threshold Audiogram (Pure Tone) Automated 0208T 2019 SOPHIA LUO [facility] Fitting Monofocals (Not For Aphakia) [facility] Fitting Monofocals (Not For Aphakia) 56277 2018 YANN SOLIS Scanning Computerized Ophthalmic Diagnostic Imaging Retina Scanning Computerized Ophthalmic Diagnostic Imaging Retina 15847 2018 YANN SOLIS Determination Of Refractive State Determination Of Refractive State 48402 2018 YANN SOLIS Ophthalmological New Patient Start Comprehensive Care Ophthalmological New Patient Start Comprehensive Care [id number] 2018 YANN SOLIS Psychiatric Evaluation Review of Records and Reports Psychiatric Evaluation Review of Records and Reports 57507 2017 OSIRUS, POLY Tristen Blanchard Supervised Injection Intramuscular Antibiotic Supervised Injection Intramuscular Antibiotic 18896 2015 MEERA FLEMING Threshold Audiogram (Pure Tone) Automated Threshold Audiogram (Pure Tone) Automated 0208T 2015 SKYLAR STANLEY Determination Of Refractive State Determination Of Refractive State 44045 2015 NEERAJ BLANCO Screening Test Of Visual Acuity, Quantitative, Bilateral Screening Test Of Visual Acuity, Quantitative, Bilateral 26149 2015 NEERAJ BLANCO [facility] Fitting Monofocals (Not For Aphakia) [facility] Fitting Monofocals (Not For Aphakia) 53619 2015 NEERAJ BLANCO Brief communication technology-based service, e.g. virtual check-in, by a physician or other qualified health care profinge mercado who can report evaluation and management services, provided to an established patient, not originating from a related E/M service provided within the previous 7 days nor leading to an E/M service or procedure within the next 24 hours or soonest available appointment; 5-10 minutes of medical discu ion Brief communication technology-based service, e.g. virtual check-in, by a physician or other qualified health direct care counselor who can report evaluation and management services, provided to an established patient, not originating from a related E/M service provided within the previous 7 days nor leading to an E/M service or procedure within the next 24 hours or soonest available appointment; 5-10 minutes of medical discussion [id number] SHANTA JACKSON Physical Therapy: ___ Se ion Segments, 15 Minutes Each Physical Therapy: ___ Session Segments, 15 Minutes Each [id number] VALERIE HERNANDEZ Exercise equipment Exercise equipment [id number] VALERIE HERNANDEZ [facility] Physical Medicine Physical Therapy Re-Evaluation Physical Medicine Physical Therapy Re-Evaluation 57386 [facility] Ear Protector Attenuation Measurements Ear Protector Attenuation Measurements 68567 ROLANDO GUZMAN Attenuation measurements completed on custom earplugs and foamie earplugs. [facility] Physical Therapy Mobilization Joint Physical Therapy Mobilization Joint [address] [address] Modalities Vasopneumatic Device Modalities Vasopneumatic Device 52104 [address] Modalities Cryotherapy Cold Packs Modalities Cryotherapy Cold Packs [address]88 MIL[address] Ophthalmological New Patient Start Comprehensive Care Ophthalmological New Patient Start Comprehensive Care 36783 MONIQUE MILLS Scanning Computerized Ophthalmic Diagnostic Imaging Optic Nerve Scanning Computerized Ophthalmic Diagnostic Imaging Optic Nerve 64419 MONIQUE MILLS Determination Of Refractive State Determination Of Refractive State 48820 MONIQUE MILLS [facility] Fitting Monofocals (Not For Aphakia) [facility] Fitting Monofocals (Not For Aphakia) 69587 MONIQUE MILLS Excision Of Lesion Trunk Benign .6 to 1cm Excision Of Lesion Trunk Benign .6 to 1cm 38720 EDUARDO YUNG Layer Closure Of Wound Trunk 2.6 to 7.5 cm Layer Closure Of Wound Trunk 2.6 to 7.5 cm 86498 EDUARDO YUNG [facility] Threshold Audiogram (Pure Tone) Automated Threshold Audiogram (Pure Tone) Automated 0208T VERNON REYES [facility] Evoked Otoacoustic Antonella ions Comprehensive Evoked Otoacoustic Emissions Comprehensive 80478 KATHARINA GUZMANA Honorio [facility] Tympanometry With Reflex Threshold Measurements Tympanometry With Reflex Threshold Measurements 76543 MEGAN ROLANDO Honorio [facility] Threshold Audiogram (Pure Tone) Threshold Audiogram (Pure Tone) 28331 MARTJORGE LUIS , KATHARINAA L [facility] Audiometry Speech Threshold Audiometry Speech Threshold 14125 MEGAN KATHARINAA L [facility] Psychiatric Evaluation Review of Records and Reports Psychiatric Evaluation Review of Records and Reports 31390 THAI COLIN [facility] Waiver services; not otherwise specified (NOS) Waiver services; not otherwise specified (NOS) [id number] MARIO ARTHUR [facility] Non-Physician Phone Call To Patient/Provider Brief (5-10min) Non-Physician Phone Call To Patient/Provider Brief (5-10min) 16447 SUE MUJICA [facility] Social History Combined list of available smoking, tobacco, and other social history from [facility] facilities. Social History Type Response Date Comment Sour e Tobacco smoking status NHIS VA-TOBACCO FORMER USER 10/06/2023 [facility] History of tobacco use VA-TOBACCO QUIT 1 TO < 5 YRS 10/06/2023 [facility] Sex Representation Male (finding) 10/24/2019 Un known Organization Tobacco Exposure to Secondhand Smoke: No. Never-cigarette user Cigarette use:. Yes-current everyday other tobacco user (not cigarettes) Other Tobacco use:. SNUS pouches (oral pouch no spit) Other Tobacco type:. Ambulatory Pharmacy Sexual Orientation Ambula tory Pharmacy Gender identity Ambulator y Pharmacy This section is an empty social history section. [facility] Assessment and Plan Combined list of future care activities from [facility] and [facility] facilities (e.g., assessment and plan notes, appointments, orders, and referrals). Additional future care activities may be listed in the Plan of Care section. Result Assessment and Plan Date Source Assessment and Plan No data available for this section 03/18/2025 Ambulatory Pharmacy Functional Status Combined list of recent functional and cognitive assessments recorded at [facility] Functional [place] Measurement (FIM) Scale: 1 = Total Assistance (Subject = 0% +), 2 = Maximal Assistance (Subject = 25% +), 3 = Moderate Assistance (Subject = 50% +), 4 = Minimal Assistance (Subject = 75% +), 5 = Supervision, 6 = Modified [place] (Device), 7 = Complete [place] (Timely, Safely). Assessment Date/Time Source Assessment Type Assessment Skill Assessment Score Assessment Details No data available for this section
[2025-03-17 22:33] VITALS: BP 125/81; PULSE 86; RESP 14; TEMP 36.8; O2SAT 98; BMI 30.5
[2025-03-17 22:38] VITALS: BP 125/81; PULSE 86; RESP 14; TEMP 36.8; O2SAT 98
--- NOTE | 2025-03-17 22:49 | CTR_ITS ---
PROCEDURE INFORMATION: Exam: CT Abdomen And Pelvis Without Contrast Exam date and time: 03/17/2025 11:53 PM Age: 29 years old Clinical indication: Abdominal pain; Right; C/O RT flank pain. History of ureterolithiasis. ; Additional info: Right low back pain/flank pain TECHNIQUE: Imaging protocol: Computed tomography of the abdomen and pelvis without contrast. Radiation optimization: All CT scans at this facility use at least one of these dose optimization techniques: automated exposure control; mA and/or kV adjustment per patient size (includes targeted exams where dose is matched to clinical indication); or iterative reconstruction. COMPARISON: CR XR chest 1V portable [id number] 05/23/2024 11:12 AM RADIATION DOSE METRICS: Total DLP (mGy-cm): 921.41 FINDINGS: Liver: No discrete liver lesions are apparent. Smooth hepatic contour. Gallbladder and biliary ducts: Gallbladder is largely contracted but otherwise unremarkable. Pancreas: No evidence of pancreatitis. No ductal dilation. Spleen: Spleen is within normal limits. Adrenal glands: Adrenal glands are within expected limits. Kidneys and ureters: There is a 4.5 x 6 mm calculus in the proximal right ureter with [id number] proximal ureterectasis and hydronephrosis. Several intrarenal calculi on the left but no ureteral stones on the left. Low-attenuation right renal cortical lesion measuring 1.5 cm, measuring fluid density suggestive of a cyst. Stomach and bowel: Small bowel is normal caliber. No obstruction. Large bowel within normal limits. No inflammatory wall thickening or abnormal bowel dilatation. Appendix: No evidence of appendicitis. Intraperitoneal space: No free air. No significant fluid collection. Vasculature: No abdominal aortic aneurysm. Lymph nodes: No pathologically enlarged lymph nodes by CT size criteria. Urinary bladder: Unremarkable as visualized. Reproductive: Unremarkable as visualized. Bones/joints: No acute osseous abnormalities. Soft tissues: Unremarkable. CT/CT kidney stone [id number] IMPRESSION: 1. Proximal right ureteral 6 mm calculus with [id number] obstructive features. 2. Nonobstructive left nephrolithiasis. COMMENTS: Consistent with the [employer]'s Incidental Findings Committee white paper (J Am Anmol Radiol 2018): Any incidental renal lesion less than 1 cm or classified as too small to characterize, or any incidental cystic renal lesion characterized as simple-appearing, is likely benign. No follow-up imaging is recommended for these lesions per consensus recommendations based on imaging criteria.
--- NOTE | 2025-03-17 22:53 | W.ED.ABDPA2 ---
HPI - Abdominal Pain General: Chief Complaint: Abdominal Pain Stated Complaint: Possible Kidney Pain Time Seen by Provider: 03/17/25 22:41 Source: patient Mode of arrival: ambulatory Limitations: no limitations History of Present Illness: Patient is a 29-year-old male presents emergency department planing of right lower back pain beginning yesterday. He reports history of kidney stones, he states this feels similar. Pain is primarily felt to the right low back but also on the right flank. He also notes last night he had a few episodes of hematuria that this has cleared up. States yesterday pain was mild but today was much worse, at this time noted to be uncomfortable as he is standing at bedside. States the pain also radiates into the groin. No fevers, nausea or vomiting. No chest pain or shortness of breath. States he has been taking Motrin and Tylenol and actually states that this has helped quite a bit, denies needing pain medications at this time and states he just wants to make sure that this is another kidney stone and not anything else. Otherwise vital stable at this time and he is nontoxic-appearing. MD elicited complaint: flank pain and other (Right low back pain) Pertinent past history: kidney stones Onset (ago): day(s) Pain Consistency: constant Associated Symptoms: Reports hematuria; Denies bloating, change in stool character, chills, constipation, diarrhea, dysuria, fever(s), hematochezia, nausea and vomiting Related Data Home Medications ?Medication ?Instructions ?Recorded ?Confirmed calcium carbonate (Tums) 300 mg PO TID 05/23/24 07/30/24 famotidine 20 mg tablet 20 mg PO DAILY 05/23/24 07/30/24 phenylephrine 5 2 cap PO Q6H PRN Sinus Symptoms 05/23/24 07/30/24 mg-dextromethorphan 10 mg-acetaminophen 325 mg capsule Previous Rx's ?Medication ?Instructions ?Recorded hydrocodone 7.5 mg-acetaminophen 1 tab PO Q8H PRN pain #20 tabs 03/18/25 325 mg tablet ondansetron 4 mg disintegrating 4 mg PO TID PRN nausea and 03/18/25 tablet vomiting #30 tabs tamsulosin 0.4 mg capsule 0.4 mg PO DAILY #14 caps 03/18/25 Allergies Allergy/AdvReac Type Severity Reaction Status Date / Time ibuprofen Allergy Unknown Verified 07/30/24 15:11 Review of Systems General: Reports: 10 or more systems reviewed and unremarkable except in HPI and below Const: Denies: fever(s), chills, change in appetite, change in weight or diaphoresis ENMT: Denies: throat pain or hoarseness Card: Denies: chest pain, palpitations or lightheadedness Resp: Denies: dyspnea, productive cough or wheezing GI: Denies: abdominal pain, nausea, vomiting, diarrhea, constipation, bloating, change in stool character or hematochezia : Reports: flank pain, hematuria and testicular pain; Denies: difficulty urinating, dysuria, urinary frequency or urinary urgency Musc: Reports: back pain; Denies: neck pain Skin/Breast: Denies: rash or new lesions Neuro: Denies: headache(s) or dizziness PFSH ED PFSH: Social History Smoking and tobacco/nicotine status: never used tobacco/nicotine Physical Exam Const: COMMON NORMALS: no acute distress, average body habitus, patient oriented x3, no limitations, healthy appearing, alert and well nourished GENERAL APPEARANCE: cooperative and comfortable ORIENTATION/CONSCIOUSNESS: Yes awake OTHER: nontoxic Neck/C-Spine: COMMON NORMALS: full ROM, supple and no meningeal signs Resp: COMMON NORMALS: normal respiratory effort, No retractions, No use of accessory muscles and clear to auscultation bilaterally AUSCULTATION: clear to auscultation bilaterally, no crackles, no rales, no rhonchi and no wheezes Cardio: COMMON NORMALS: regular rate, regular rhythm, No gallops present (Cardio), No clicks present (Cardio), No murmurs present (Cardio) and No rub (Cardio) RATE: regular rate RHYTHM: regular rhythm GI: COMMON NORMALS: Normal to inspection, nondistended, normoactive bowel sounds present, Soft to palpation, non-tender, No hepatosplenomegaly present and no masses AUSCULTATION: Yes normoactive bowel sounds PALPATION: Yes Soft to palpation, No Guarding due to palpation present (GI), No Rigid due to palpation and Yes No hepatosplenomegaly present RECTAL EXAM: Yes deferred : COMMON NORMALS: Yes no CVA tenderness BLADDER/KIDNEY EXAM: Yes no CVA tenderness Back/Pelvis: COMMON NORMALS: no CVA tenderness Extremity: COMMON NORMALS: normal to inspection and full ROM Neuro: COMMON NORMALS: patient oriented x3, moves all extremities, no focal motor deficits and no sensory deficits noted SENSORIUM/ORIENTATION: Yes alert MENINGEAL SIGNS: Yes no meningeal signs Psych: COMMON NORMALS: mental status grossly normal, cooperative and speech normal SPEECH: Yes normal speech Skin: COMMON NORMALS: no rashes or lesions noted GENERAL SKIN EXAM: no rashes or lesions noted Course Vital Signs: Vital signs: Vital Signs Temperature 98.2 F 03/17/25 22:38 Pulse Rate 86 03/17/25 22:38 Respiratory Rate 14 03/17/25 22:38 Blood Pressure 125/81 03/17/25 22:38 Pulse Oximetry 98 03/17/25 22:38 Oxygen Delivery Me thod Room Air 03/17/25 22:38 MDM - Abdominal Pain Medical Decision Making Patient presented with right low back and flank pain, stating it is comparable to previous kidney stones he has had. Pain radiation into the groin as well, he is not have any fevers or nausea or vomiting at home. Stating the pain had eased up somewhat prehospital, after taking Motrin and Tylenol. Nontoxic on exam though does appear uncomfortable as he is standing at bedside. Vitals are stable, afebrile. Lab work is reassuring, urinalysis shows no infection and just microscopic hematuria. CT does show proximal right ureteral calculus measuring 6 mm with mild obstructive features, suspect this will pass spontaneously with aid of Flomax, pain meds and nausea meds will send to pharmacy for symptomatic treatment and he will be referred to urology as this is his third such kidney stone. He is ultimately discharged home and informed to return with any new or worsening, specifically any fevers, nauseous vomiting, or worsening of pain. Lab Data 03/17/25 23:22 03/17/25 23:22 Labs/Radiology: Radiology Impressions Abdomen/Pelvis CT 03/17/25 22:49 IMPRESSION: 1. Proximal right ureteral 6 mm calculus with [id number] obstructive features. 2. Nonobstructive left nephrolithiasis. COMMENTS: Consistent with the [employer]'s Incidental Findings Committee white paper (J [employer] Anmol Radiol 2018): Any incidental renal lesion less than 1 cm or classified as too small to characterize, or any incidental cystic renal lesion characterized as simple-appearing, is likely benign. No follow-up imaging is recommended for these lesions per consensus recommendations based on imaging criteria. Laboratory Results WBC 14.88 10^3/uL (3.29-11.43) H 03/17/25 23:22 RBC 5.02 10^6/uL (3.85-5.65) 03/17/25 23:22 Hgb 15.10 g/dL (11.27-16.99) 03/17/25 23:22 Hct 45.2 % (37-53) 03/17/25 23:22 MCV 90.0 fl (82-101) 03/17/25 23:22 MCH 30.1 pg (27-33) 03/17/25 23: MCHC 33.4 g/dL (30-55) 03/17/25 23:22 RDW 12.2 % (12.1-15.1) 03/17/25 23:22 Plt Count 207 10^3/cmm (157-399) 03/17/25 23:22 MPV 9.8 fL (7.4-10.4) 03/17/25 23:22 Neut % (Auto) 79.8 % 03/17/25 23:22 Lymph % (Auto) 13.0 % 03/17/25 23:22 [place] % (Auto) 6.2 % 03/17/25 23:22 Eos % (Auto) 0.3 % 03/17/25 23:22 Baso % (Auto) 0.3 % 03/17/25 23:22 Neut # (Auto) 11.87 10^3/uL (1.8-7.7) H 03/17/25 23:22 Lymph # (Auto) 1.9 10^3/uL (0.8-4.8) 03/17/25 23:22 [place] # (Auto) 0.9 10^3/uL (0.2-0.9) 03/17/25 23:22 Eos # (Auto) 0.1 10^3/uL (0.0-0.8) 03/17/25 23:22 Baso # (Auto) 0.0 10^3/uL (0.0-0.1) 03/17/25 23:22 Nucleated RBC % (auto) 0 % 03/17/25 23:22 Nucleated RBCs # 0.0 /100WBC 03/17/25 23:22 Sodium 139 mmol/L (136-145) 03/17/25 23:22 Potassium 4.4 mmol/L (3.5-5.1) 03/17/25 23:22 Chloride 105 mmol/L (98-107) 03/17/25 23:22 Carbon Dioxide 24 mmol/L (22-29) 03/17/25 23:22 Anion Gap 14.4 (5-19) 03/17/25 23:22 BUN 18 mg/dL (6-20) 03/17/25 23:22 Creatinine 1.1 mg/dL (0.7-1.2) 03/17/25 23:22 GFR Calculation 79.7 mL/min (90-130) L 03/17/25 23:22 Glucose 111 mg/dL (65-115) 03/17/25 23:22 Calculated Osmolality 291 mOsm/kg (285-295) 03/17/25 23:22 Calcium 9.3 mg/dL (8.5-10.5) 03/17/25 23:22 Total Bilirubin 0.2 mg/dL (0.15-1.2) 03/17/25 23:22 AST 14 U/L (0-40) 03/17/25 23:22 ALT 17 U/L (0-41) 03/17/25 23:22 Alkaline Phosphatase 69 U/L (40-130) 03/17/25 23:22 Total Protein 7.1 g/dL (6.6-8.7) 03/17/25 23:22 Albumin 4.6 g/dL (3.5-5.2) 03/17/25 23:22 Globulin 2.5 g/dL (1.3-4.6) 03/17/25 23:22 Lipase 40 U/L (13-60) 03/17/25 23:22 Urine Color Yellow (Yellow) 03/17/25 22:45 Urine Appearance Clear (CLEAR) 03/17/25 22:45 Urine pH 6.0 (5-7) 03/17/25 22:45 Ur Specific [place] 1.020 (1.005-1.030) 03/17/25 22:45 Urine Protein Negative (Negative) 03/17/25 22:45 Urine Glucose (UA) Negative (Normal) 03/17/25 22:45 Urine Ketones Negative (Negative) 03/17/25 22:45 Urine Blood 3+ (Negative) A 03/17/25 22:45 Urine Nitrate Negative (Negative) 03/17/25 22:45 Urine Bilirubin Negative (Negative) 03/17/25 22:45 Urine Urobilinogen 1.0 mg/dL (Negative) 03/17/25 22:45 Ur Leukocyte Esterase Negative (Negative) 03/17/25 22:45 Urine RBC 21-50 /hpf (0-2) H 03/17/25 22:45 Urine WBC 0-5 /hpf (0-5) 03/17/25 22:45 Ur Squamous Epith Cells 0-5 /hpf (0-5) 03/17/25 22:45 Amorphous Sediment Not Reportable 03/17/25 22:45 Urine Bacteria None seen /hpf (NONE) 03/17/25 22:45 Hyaline Casts 0.40 /lpf 03/17/25 22:45 All radiology interpretation(s) finalized by discharge Discharge Plan Discharge Patient Disposition: Home Clinical Impression: Ureterolithiasis Condition: Stable Prescriptions: New hydrocodone-acetaminophen 7.5-325 mg tablet 1 tab PO Q8H PRN (Reason: pain) Qty: 20 0RF ondansetron 4 mg tablet,disintegrating 4 mg PO TID PRN (Reason: nausea and vomiting) Qty: 30 0RF tamsulosin 0.4 mg capsule 0.4 mg PO DAILY Qty: 14 0RF No Action Tums 300 mg (750 mg) Tablet,Chewable 300 mg PO TID famotidine 20 mg Tablet 20 mg PO DAILY DayTime 5-10-325 mg Capsule 2 cap PO Q6H PRN (Reason: Sinus Symptoms) Discharge Orders: Discharge ED (Routine); Ordered 03/18/25 Ordered By: Rod Baer Patient Instructions: Opioid Safety, Pain Management, Patient Portal & [place] Instructions Activity Restrictions/Additional Instructions: Ureteral Stone Discharge Diagnosis: You have a 6 mm kidney stone in the upper part of your right ureter. There are mild signs of blockage, but no infection. Medications: - Hydrocodone-acetaminophen 7.5-325 mg: Take as prescribed for pain. Do not exceed the recommended dose. Avoid driving or operating machinery while taking this medication. - Tamsulosin 0.4 mg: Take once daily to help relax your ureter and increase the chance of passing the stone. - Ondansetron: Take as needed for nausea. What to Expect: - Stones of this size and location may pass on their own, but passage rates are lower for proximal stones compared to distal ones. About 62% of stones >= mm pass spontaneously, usually within 1-4 weeks. - You may experience pain as the stone moves. Use your pain medication as directed. Instructions: - Hydration: Drink plenty of fluids (aim for at least 2-3 liters per day) to help flush the stone. - Diet: Maintain a normal calcium intake and limit salt. No need to restrict calcium unless otherwise advised. - Strain your urine: Use a strainer to catch the stone if it passes. Bring the stone to your follow-up appointment for analysis. - Monitor symptoms: Watch for fever, chills, severe or persistent pain, vomiting, or inability to urinate. These may indicate infection or worsening blockage and require immediate medical attention. - Follow-up: You have been referred to a urologist. Follow up as scheduled. Imaging (such as a repeat CT or ultrasound) may be needed in 2-4 weeks to check stone position and kidney function. - Activity: You may resume normal activities as tolerated, but rest if pain is severe. When to Seek Immediate Care: - Fever or chills - Severe, unrelenting pain not controlled by medication - Vomiting preventing fluid intake - Blood in urine with clots or inability to urinate Additional Information: - Medical expulsive therapy (tamsulosin) is considered off-label but is supported by guidelines for stones less than 10 mm. - Most stones that pass do so within 4 weeks. If the stone has not passed or symptoms persist, further intervention may be needed. Contact Information: If you have any questions or concerns, or if your symptoms worsen, contact your healthcare provider or go to the emergency department. Print Language: Irish Coding Level of Care Code ED Line Construction Supervisor for Carla Gordon
[2025-03-17 22:59] LABS: Glucose Urine UA Negative (Normal); Nitrate Urine Negative (Negative); Specific Gravity, Urine 1.020 (1.005-1.030)
[2025-03-17 23:01] LABS: Add Urine Microscopic? YES
[2025-03-17 23:27] LABS: Hematocrit 45.2 % (37-53); Hemoglobin 15.10 g/dL (11.27-16.99); Mean Corpuscular HGB Conc 33.4 g/dL (30-55); Mean Corpuscular Hemoglobin 30.1 pg (27-33); Mean Corpuscular Volume 90.0 fl (82-101); Nucleated Red Blood Cells % 0 %; Platelet Count 207 10^3/cmm (157-399); Red Blood Count 5.02 10^6/uL (3.85-5.65); White Blood Count 14.88 10^3/uL (3.29-11.43)
[2025-03-17 23:43] LABS: Alanine Aminotransferase 17 U/L (0-41); Albumin Level 4.6 g/dL (3.5-5.2); Alkaline Phosphatase 69 U/L (40-130); Anion Gap 14.4 (5-19); Aspartate Amino Transferase 14 U/L (0-40); Blood Urea Nitrogen 18 mg/dL (6-20); Calcium 9.3 mg/dL (8.5-10.5); Carbon Dioxide 24 mmol/L (22-29); Chloride 105 mmol/L (98-107); Creatinine Clr Calc Pharmacy 123.5722; Globulin 2.5 g/dL (1.3-4.6); Glucose 111 mg/dL (65-115); Lipase 40 U/L (13-60); Osmolality Calculated 291 mOsm/kg (285-295); Potassium 4.4 mmol/L (3.5-5.1); Sodium 139 mmol/L (136-145); Total Protein 7.1 g/dL (6.6-8.7)
--- NOTE | 2025-03-19 07:27 | DCPLANNER ---
Referral sent to [facility]
== END 2025-03-18 00:18 | disposition home or self-care (01) ==
PROVIDERS: Emergency Provider Physician Assistant
DX: N20.1 Calculus of ureter (principal); Z87.442 Personal history of urinary calculi
CPT/HCPCS: 36415; 74176; 80053; 81001; 83690; 85025; 87086; 99284; J9999